=== PATIENT | female | born 1955 | race Caucasian/White ===

== ENCOUNTER → 2016-10-06 | Outpatient (CLI) | payer OTHER ==
[~2016-10-06] MED LIST: CODCAP4 PO; EFFSR75 PO; HYDR200T5 PO; HYT/2 PO; IBUP-103 PO; IBUP-1050 PO; IBUP200C9 PO; OMEP40CA41 PO; PLQ200 PO; SPIR1TAB72 PO; TRAZ50TA35 PO
[2016-10-06 11:20] LABS: BASO % 1.5 %; BASO ABS # 0.06 K/uL (0-0.2); COMPLETE YES; EOS % 8.4 %; HEMATOCRIT 35.5 % (37-47); LYMPH % 20.1 %; LYMPH ABS # 0.79 K/uL (1.2-3.4); MEAN CELL VOLUME 83.7 fL (80-100); MEAN CORPUSCULAR HEMOGLOBIN 27.8 pg (25-34); MEAN CORPUSCULAR HGB CONC 33.2 g/dl (32-36); MEAN PLATELET VOLUME 11.4 fL (7.4-10.4); MONO % 13.2 %; NEUT % 56.8 %; PLATELET COUNT 228 K/uL (130-400); RED BLOOD COUNT 4.24 M/uL (4.2-5.4); WHITE BLOOD COUNT 3.93 K/uL (4.8-10.8)
[2016-10-06 11:31] LABS: BLOOD UREA NITROGEN 23 mg/dl (7-18); BUN/CREATININE RATIO 17.5 (10-20); CARBON DIOXIDE 30 mmol/L (21-32); CHLORIDE 100 mmol/L (98-107); CHOLESTEROL 227 mg/dl (0-200); GLUCOSE 91 mg/dl (70-99); POTASSIUM 3.9 mmol/L (3.5-5.1); SODIUM 135 mmol/L (136-145); TRIGLYCERIDES 80 mg/dl (0-150); VERY LOW DENSITY LIPOPROT CALC 16 mg/dl
[2016-10-06 11:36] LABS: ESTIMATED AVERAGE GLUCOSE 114 mg/dl; HA1C FLAG Normal (Normal)
[2016-10-06 11:40] LABS: CALCIUM 9.3 mg/dl (8.5-10.1)
[2016-10-06 11:50] LABS: CHOLESTEROL/HDL RATIO 3.4; HDL CHOLESTEROL 66 mg/dl; LDL CHOLESTEROL CALCULATED 145 mg/dl; RHEUMATOID FACTOR 46.3 U/mL (0-15)
[2016-10-06 13:13] LABS: URINE APPEARANCE CLEAR (CLEAR); URINE BILIRUBIN NEG (NEG); URINE COLOR YELLOW; URINE NITRITE NEG (NEG); URINE PH 5.5 (4.5-7.5); URINE SPECIFIC GRAVITY 1.008 (1.000-1.030); UROBILINOGEN NEG (NEG)
[2016-10-06 13:14] LABS: MANUAL MICROSCOPIC REQUIRED? NO; REVIEW REQ? NO
== END | disposition home or self-care (01) ==
LOC: C.LABPBG 08:23
PROVIDERS: ATTEND Internal Medicine
DX: I10 Essential (primary) hypertension (principal)

== ENCOUNTER → 2016-10-11 | Outpatient (CLI) | payer OTHER ==
[2016-10-11 17:46] LABS: HEMATOCRIT 35.9 % (37-47)
[2016-10-11 18:12] LABS: BLOOD UREA NITROGEN 24 mg/dl (7-18)
[2016-10-11 18:17] LABS: FERRITIN 18.9 ng/ml (8.0-388.0); TOTAL IRON BINDING CAPACITY 349 mcg/dl (250-450)
== END | disposition home or self-care (01) ==
LOC: C.LAB1850 17:01
PROVIDERS: ATTEND Internal Medicine
DX: D64.9 Anemia, unspecified (principal)

== ENCOUNTER → 2016-10-17 | Outpatient (CLI) | payer OTHER | END | disposition home or self-care (01) | LOC: C.LABSPEC 10-12 15:31 | PROVIDERS: ATTEND Internal Medicine | DX: D64.9 Anemia, unspecified (principal) ==

== ENCOUNTER → 2016-10-18 | Outpatient (CLI) | payer OTHER ==
--- NOTE | 2016-10-18 08:49 | DIAGNOSTIC IMAGING REPORT ---
DOPPLER ULTRASOUND OF THE RENAL ARTERIES CLINICAL HISTORY: Renal insufficiency. COMPARISON STUDY: CT of the abdomen January 28, 2009. TECHNIQUE: Grayscale and color and duplex Doppler sonography of the abdominal aorta and renal arteries was performed. FINDINGS: The peak systolic velocity within the abdominal aorta was 107 cm/s. The peak systolic velocity within the right renal artery was 108 cm/s and the peak systolic velocity within the left renal artery was 88 cm/s. Both renal veins were patent. Segmental waveforms within each kidney were within normal limits. IMPRESSION: No sonographic evidence of renal artery stenosis. Electronically signed by: Douglas Guaman M.D. 10/18/2016 8:48 AM Dictated Date/Time: 10/18/2016 8:46 AM
--- NOTE | 2016-10-18 08:50 | DIAGNOSTIC IMAGING REPORT ---
RENAL ULTRASOUND CLINICAL HISTORY: Renal insufficiency. COMPARISON STUDY: CT of the abdomen January 28, 2009. TECHNIQUE: Sonography of the kidneys and the urinary bladder was performed. FINDINGS: The right kidney measures 9.2 x 4.6 x 4.7 cm and the left measures 9.3 x 4.9 x 4 cm. There is no hydronephrosis. Renal echogenicity, size and cortical thickness are normal. The bladder is unremarkable by sonography. No renal masses or calculi are identified by sonography. IMPRESSION: Normal renal ultrasound. Electronically signed by: Douglas Guaman M.D. 10/18/2016 8:49 AM Dictated Date/Time: 10/18/2016 8:48 AM
== END | disposition home or self-care (01) ==
LOC: C.ULTR 07:30
PROVIDERS: ATTEND Internal Medicine
DX: N28.9 Disorder of kidney and ureter, unspecified (principal)

== ENCOUNTER → 2017-03-09 | Outpatient (CLI) | payer OTHER ==
[~2017-03-09] MED LIST changes: +CODCAP PO; -CODCAP4 PO; -HYDR200T5 PO; -IBUP-1050 PO; -IBUP200C9 PO; -SPIR1TAB72 PO
[2017-03-09 17:19] LABS: URINE APPEARANCE CLEAR (CLEAR); URINE BILIRUBIN NEG (NEG); URINE COLOR YELLOW; URINE NITRITE NEG (NEG); URINE PH 5.5 (4.5-7.5); URINE SPECIFIC GRAVITY 1.014 (1.000-1.030); UROBILINOGEN NEG (NEG)
[2017-03-09 17:21] LABS: MANUAL MICROSCOPIC REQUIRED? NO; REVIEW REQ? NO
[2017-03-09 17:22] LABS: BASO % 1.5 %; BASO ABS # 0.06 K/uL (0-0.2); COMPLETE YES; EOS % 6.7 %; HEMATOCRIT 35.1 % (37-47); IG% 0.3 %; LYMPH % 24.7 %; LYMPH ABS # 0.96 K/uL (1.2-3.4); MEAN CELL VOLUME 83.4 fL (80-100); MEAN CORPUSCULAR HEMOGLOBIN 27.8 pg (25-34); MEAN CORPUSCULAR HGB CONC 33.3 g/dl (32-36); MEAN PLATELET VOLUME 10.9 fL (7.4-10.4); MONO % 12.3 %; NEUT % 54.5 %; PLATELET COUNT 230 K/uL (130-400); RED BLOOD COUNT 4.21 M/uL (4.2-5.4); WHITE BLOOD COUNT 3.89 K/uL (4.8-10.8)
[2017-03-09 18:07] LABS: ALT/SGPT 24 U/L (12-78); AST/SGOT 26 U/L (15-37); BLOOD UREA NITROGEN 20 mg/dl (7-18); BUN/CREATININE RATIO 15.6 (10-20); CALCIUM 8.7 mg/dl (8.5-10.1); CARBON DIOXIDE 25 mmol/L (21-32); CHLORIDE 102 mmol/L (98-107); GLUCOSE 83 mg/dl (70-99); POTASSIUM 3.8 mmol/L (3.5-5.1); SODIUM 136 mmol/L (136-145)
[2017-03-09 18:13] LABS: ALB/GLOB RATIO 1.1 (0.9-2); ALKALINE PHOSPHATASE 84 U/L (45-117); CHOLESTEROL 225 mg/dl (0-200); CHOLESTEROL/HDL RATIO 3.8; FERRITIN 28.3 ng/ml (8.0-388.0); HDL CHOLESTEROL 59 mg/dl; LDL CHOLESTEROL CALCULATED 141 mg/dl; TRIGLYCERIDES 124 mg/dl (0-150); VERY LOW DENSITY LIPOPROT CALC 25 mg/dl
== END | disposition home or self-care (01) ==
LOC: C.LABPBG 11:40
PROVIDERS: ATTEND Internal Medicine
DX: I10 Essential (primary) hypertension (principal); D64.9 Anemia, unspecified

== ENCOUNTER → 2017-05-16 | Day surgery (SDC) | payer OTHER ==
[2017-05-09 10:00] VITALS: Ht 152.4 cm; Wt 90.9 kg
[~2017-05-16] VITALS: Ht 152.4 cm; Wt 90.9 kg
[~2017-05-16] MED LIST changes: -CODCAP PO; +FENTANYL CITRATE INJ 50 MCG/1 ML 2 ML VIAL ONE; +HYDR200T5 PO; -IBUP-103 PO; +IBUP-1050 PO; +IBUP200C9 PO; +LIDOCAINE HCL 2% 2 ML VIAL (20MG/ML) ONE; -PLQ200 PO; +PROPOFOL IV EMULSION 10 MG/ML 20 ML VIAL IV ONE; +SODIUM CHLORIDE 0.9% 500ML 500 ML IV ONE; +SPIR1TAB72 PO
--- NOTE | 2017-05-16 12:12 | Endo History and Physical ---
History & Physical Date of Service: May 16, 2017. Chief Complaint: ANEMIA Referring Physician: DR. EVANS History of Present Illness 61 yo CF who presents for EGD and colonoscopy secondary to anemia. Past Medical History Arthritis, Gastrointestinal Disorder, Sleep Apnea, Depression Past Surgical History Hx Cardiac Surgery: No Hx Internal Defibrillator: No Hx Pacemaker: No Hx Abdominal Surgery: Yes (TUBAL LIGATION, ABDOMINAL HERNIA X 2, HYSTERECTOMY) Hx of Implantable Prosthesis: No Hx Post-Op Nausea and Vomiting: No Hx Cancer Surgery: No Hx Thoracic Surgery: No Hx Orthopedic: Yes (RT KNEE ARTHROSCOPY) Hx Urinary Tract Surgery: No Family History None Social History Smoking Status: Never Smoker Hx Substance Use: No Hx Alcohol Use: Yes (RARELY) Allergies Coded Allergies: Sulfa Antibiotics (Verified Allergy, Severe, RASH, 05/09/17) JESSE JOHNSONS SYNDROME Current Medications Reported Home Medications Medications Dose Route/Sig Max Daily Dose Days Date Category Trazodone (Trazodone HCl) 50 Mg Tab 50 Mg PO HS 05/16/17 Reported Hytrin (Terazosin HCl) 2 Mg Cap 2 Mg PO DAILY PRN 05/16/17 Reported Advil Pm (Ibuprofen-Diphenhydramine Hcl) 1 Cap Cap 2 Cap PO HS PRN 05/09/17 Reported Advil (Ibuprofen) 200 Mg Tab 2 Tab PO QAM 05/09/17 Reported Spironolactone/Hydrochlor 25-25 mg (HCTZ/Spironolactone) 1 Ea Tab 1 Tab PO BID 05/09/17 Reported Plaquenil (Hydroxychloroquine Sulfate) 200 Mg Tab 200 Mg PO BID 05/09/17 Reported Effexor Extended Rel (Venlafaxine Hcl) 75 Mg Capcr 75 Mg PO QAM 10/26/13 Reported Prilosec (Omeprazole) 40 Mg Cap 40 Mg PO QAM 10/26/13 Reported Vital Signs Weight (Kilograms): 90.91 Height (Feet): 5 Height (Inches): 0 Date Time Temp Pulse Resp B/P (MAP) Pulse Ox O2 Delivery O2 Flow Rate FiO2 05/16/17 11:25 37.4 73 16 138/71 (93) 98 Room Air Physical Exam General Appearance: WD/WN, no apparent distress Respiratory/Chest: Auscultation: breath sounds normal Cardiovascular: Heart Auscultation: RRR Abdomen: Bowel Sounds: normal Inspection & Palpation: soft, non-distended, no tenderness, guarding & rebound Assessment and Plan Assessment: 61 yo CF who presents for EGD and colonoscopy secondary to anemia. Plan: Proceed with EGD and colonoscopy.
--- NOTE | 2017-05-16 12:53 | GI REPORT ---
Procedure Date: 05/16/2017 11:56 AM Procedure: Upper GI endoscopy Indications: Iron deficiency anemia Medicines: Monitored Anesthesia Care Complications: No immediate complications. Estimated Blood Loss: Estimated blood loss: none. Procedure: Pre-Anesthesia Assessment: - Prior to the procedure, a History and Physical was performed, and patient medications and allergies were reviewed. The patient's tolerance of previous anesthesia was also reviewed. The risks and benefits of the procedure and the sedation options and risks were discussed with the patient. All questions were answered, and informed consent was obtained. Prior Anticoagulants: The patient has taken no previous anticoagulant or antiplatelet agents. ASA Grade Assessment: III - A patient with severe systemic disease. After reviewing the risks and benefits, the patient was deemed in satisfactory condition to undergo the procedure. After obtaining informed consent, the endoscope was passed under direct vision. Throughout the procedure, the patient's blood pressure, pulse, and oxygen saturations were monitored continuously. The Scope was introduced through the mouth, and advanced to the second part of duodenum. The upper GI endoscopy was accomplished without difficulty. The patient tolerated the procedure well. Findings: The esophagus was normal. A small hiatus hernia was present. The examined duodenum was normal. Impression: - Normal esophagus. - Small hiatus hernia. - Normal examined duodenum. - No specimens collected. Recommendation: - Resume previous diet. - Continue present medications. - Return to primary care physician as previously scheduled. - Perform a colonoscopy today. Casa Vaughn DO 05/16/2017 12:52:48 PM This report has been signed electronically. Note Initiated On: 05/16/2017 11:56 AM I attest to the content of the Intraoperative Record and orders documented therein, exceptions below
--- NOTE | 2017-05-16 12:55 | GI REPORT ---
Procedure Date: 05/16/2017 12:23 PM Procedure: Colonoscopy Indications: Iron deficiency anemia Medicines: Monitored Anesthesia Care Complications: No immediate complications. Estimated Blood Loss: Estimated blood loss: none. Procedure: Pre-Anesthesia Assessment: - Prior to the procedure, a History and Physical was performed, and patient medications and allergies were reviewed. The patient's tolerance of previous anesthesia was also reviewed. The risks and benefits of the procedure and the sedation options and risks were discussed with the patient. All questions were answered, and informed consent was obtained. Prior Anticoagulants: The patient has taken no previous anticoagulant or antiplatelet agents. ASA Grade Assessment: III - A patient with severe systemic disease. After reviewing the risks and benefits, the patient was deemed in satisfactory condition to undergo the procedure. After I obtained informed consent, the scope was passed under direct vision. Throughout the procedure, the patient's blood pressure, pulse, and oxygen saturations were monitored continuously. The scope was introduced through the anus and advanced to the terminal ileum. The colonoscopy was performed without difficulty. The patient tolerated the procedure well. The quality of the bowel preparation was good. The terminal ileum, ileocecal valve, appendiceal orifice, and rectum were photographed. Findings: A 7 mm polyp was found in the transverse colon. The polyp was flat. The polyp was removed with a saline injection-lift technique using a hot snare. Resection and retrieval were complete. Non-bleeding internal hemorrhoids were found during retroflexion. The hemorrhoids were small. Impression: - One 7 mm polyp in the transverse colon, removed using injection-lift and a hot snare. Resected and retrieved. - Non-bleeding internal hemorrhoids. Recommendation: - Resume previous diet. - Continue present medications. - Repeat colonoscopy in 10 years for surveillance. - Return to primary care physician as previously scheduled. aCsa Vaughn DO 05/16/2017 12:55:33 PM This report has been signed electronically. Note Initiated On: 05/16/2017 12:23 PM I attest to the content of the Intraoperative Record and orders documented therein, exceptions below
--- NOTE | 2017-05-16 13:20 | Discharge Instructions ---
Endoscopy Patient Instructions Date / Procedure(s) Performed May 16, 2017. Colonoscopy, EGD Allergy Information Coded Allergies: Sulfa Antibiotics (Verified Allergy, Severe, RASH, 05/09/17) JESSE JOHNSONS SYNDROME Discharge Date / Findings May 16, 2017. EGD: Hiatal hernia Colonoscopy: Colon polyp, Internal hemorrhoids Medication Instructions OK to resume all medications today as prescribed Reported Home Medications Medications Dose Route/Sig Max Daily Dose Days Date Category Trazodone (Trazodone HCl) 50 Mg Tab 50 Mg PO HS 05/16/17 Reported Hytrin (Terazosin HCl) 2 Mg Cap 2 Mg PO DAILY PRN 05/16/17 Reported Advil Pm (Ibuprofen-Diphenhydramine Hcl) 1 Cap Cap 2 Cap PO HS PRN 05/09/17 Reported Advil (Ibuprofen) 200 Mg Tab 2 Tab PO QAM 05/09/17 Reported Spironolactone/Hydrochlor 25-25 mg (HCTZ/Spironolactone) 1 Ea Tab 1 Tab PO BID 05/09/17 Reported Plaquenil (Hydroxychloroquine Sulfate) 200 Mg Tab 200 Mg PO BID 05/09/17 Reported Effexor Extended Rel (Venlafaxine Hcl) 75 Mg Capcr 75 Mg PO QAM 10/26/13 Reported Prilosec (Omeprazole) 40 Mg Cap 40 Mg PO QAM 10/26/13 Reported Provider Instructions Activity Restrictions - No exercising or heavy lifting for 24 hours. - Do not drink alcohol the day of the procedure. - Do not drive a car or operate machinery until the day after the procedure. - Do not make any important decisions or sign important papers in 24 hours after the procedure. Following Day: - Return to full activity which may include returning to work/school. Diet Start your diet with liquids and light foods (jello, soup, juice, toast). Then eat your usual diet if not nauseated. Treatment For Common After Affects For mild abdominal pain, bloating, or excessive gas: - Rest - Eat lightly - Lie on right side Follow-Up Information Follow-up with DR. EVANS as scheduled Anesthesia Information What You Should Know You have had a procedure that required some medicine to reduce anxiety and discomfort. This treatment is called moderate sedation. After receiving the treatment, you may be sleepy, but you will be able to breathe on your own. The effects of the treatment may last for several hours. Follow these instructions along with Activity/Diet recommendations noted above: * Do NOT do anything where dizziness or clumsiness would be dangerous. * Rest quietly at home today, then you can be up and about tomorrow. * Have a responsible person stay with you the rest of today. * You may have had an I.V. today. If so, you may take the dressing off later today. Recommendations Call your doctor if: * Trouble breathing * Continuous vomiting for more than 24 hours * Temperature above 101 degrees * Severe abdominal pain or bloating * Pain not relieved by pain medicine ordered * There is increased drainage or redness from any incision * A large amount of rectal bleeding greater than 2-3 tablespoons. (If you had a polyp/s removed or have hemorrhoids, a small amount of blood - from the rectum is to be expected.) * You have any unanswered questions or concerns. IN THE EVENT OF A SERIOUS EMERGENCY, GO TO THE NEAREST EMERGENCY ROOM Your discharge instructions were prepared by provider Casa Vaughn. Patient Instructions Signature Page Manju Murphy Patient (or Guardian) Signature/Date: I have read and understand the instructions given to me by my caregivers. Caregiver/RN/Doctor Signature/Date: The above-named patient and/or guardian has received patient instructions on this date. + Original Patient Signature Page (only) stays with chart. Please make copy for patient.
[2017-05-16 13:24] VITALS: BP 145/84; PULSE 66; O2SAT 100
--- NOTE | 2017-05-16 13:26 | Anesthesiology Progress Note ---
Anesthesia Post Op Note Date & Time May 16, 2017 at 13:26 Vital Signs Pain Intensity: 0 Vital Signs Past 12 Hours Date Time Temp Pulse Resp B/P (MAP) Pulse Ox O2 Delivery O2 Flow Rate FiO2 05/16/17 13:24 66 12 145/84 (104) 100 Room Air 05/16/17 13:06 66 12 137/98 (111) 99 Room Air 05/16/17 12:51 70 12 125/78 (94) 99 Room Air 05/16/17 11:25 37.4 73 16 138/71 (93) 98 Room Air Notes Mental Status: alert / awake / arousable, participated in evaluation Pt Amnestic to Procedure: Yes Nausea / Vomiting: adequately controlled Pain: adequately controlled Airway Patency, RR, SpO2: stable & adequate BP & HR: stable & adequate Hydration State: stable & adequate Anesthetic Complications: no major complications apparent
== END | disposition home or self-care (01) ==
LOC: C.GI 10:49
PROVIDERS: ATTEND Internal Medicine
DX: D50.9 Iron deficiency anemia, unspecified (principal); D12.3 Benign neoplasm of transverse colon; K64.8 Other hemorrhoids; F32.9 Major depressive disorder, single episode, unspecified; Z98.51 Tubal ligation status; Z90.710 Acquired absence of both cervix and uterus; Z88.2 Allergy status to sulfonamides; G47.33 Obstructive sleep apnea (adult) (pediatric); I10 Essential (primary) hypertension; K21.9 Gastro-esophageal reflux disease without esophagitis; M19.90 Unspecified osteoarthritis, unspecified site; M06.9 Rheumatoid arthritis, unspecified

== ENCOUNTER → 2017-08-14 | Outpatient (CLI) | payer OTHER ==
[~2017-08-14] MED LIST changes: -FENTANYL CITRATE INJ 50 MCG/1 ML 2 ML VIAL ONE; +IBUP1CAP30 PO; -IBUP200C9 PO; -LIDOCAINE HCL 2% 2 ML VIAL (20MG/ML) ONE; -PROPOFOL IV EMULSION 10 MG/ML 20 ML VIAL IV ONE; -SODIUM CHLORIDE 0.9% 500ML 500 ML IV ONE
[2017-08-14 17:50] LABS: BASO % 0.7 %; BASO ABS # 0.03 K/uL (0-0.2); EOS % 2.6 %; EOS ABS # 0.11 K/uL (0-0.5); HEMATOCRIT 36.1 % (37-47); HEMOGLOBIN 12.1 g/dL (12.0-16.0); IG# 0.01 K/uL (0.00-0.02); LYMPH % 26.3 %; LYMPH ABS # 1.13 K/uL (1.2-3.4); MEAN CELL VOLUME 81.3 fL (80-100); MEAN CORPUSCULAR HEMOGLOBIN 27.3 pg (25-34); MEAN CORPUSCULAR HGB CONC 33.5 g/dl (32-36); MEAN PLATELET VOLUME 10.1 fL (7.4-10.4); MONO % 14.2 %; MONO ABS # 0.61 K/uL (0.11-0.59); PLATELET COUNT 238 K/uL (130-400); WHITE BLOOD COUNT 4.29 K/uL (4.8-10.8)
== END | disposition home or self-care (01) ==
LOC: C.LAB1850 17:07
PROVIDERS: ATTEND Internal Medicine
DX: D64.9 Anemia, unspecified (principal)

== ENCOUNTER 2019-07-13 19:57 | Inpatient (IN) ==
[2019-07-13] MEDS ORDERED: SODIUM CHLORIDE 0.9% 1000ML 1,000 ML IV ONE ×2 (20:47→21:35)
[2019-07-13 21:02] LABS: Basophils # (auto) 0.01 K/uL (0-0.2); Basophils % (auto) 0.1 %; Hematocrit (blood only) 36.5 % (37-47); Hemoglobin 12.7 g/dL (12.0-16.0); Immature Granulocytes # (auto) 0.09 K/uL (0.00-0.02); Immature Granulocytes % (auto) 0.8 %; Lymphocytes # (auto) 0.49 K/uL (1.2-3.4); Lymphocytes % (auto) 4.1 %; Mean Corpuscular Hemoglobin 28.5 pg (25-34); Mean Corpuscular Hgb Conc 34.8 g/dL (32-36); Mean Platelet Volume 11.2 fL (7.4-10.4); Monocytes # (auto) 0.68 K/uL (0.11-0.59); Monocytes % (auto) 5.7 %; Neutrophils # (auto) 10.68 K/uL (1.4-6.5); Neutrophils % (auto) 89.3 %; Platelet Count 216 K/uL (130-400); RDW Coefficient of Variation 13.2 % (11.5-14.5); RDW Standard Deviation 40.2 fL (36.4-46.3); Red Blood Count 4.45 M/uL (4.2-5.4); White Blood Count 11.95 K/uL (4.8-10.8)
[2019-07-13 21:14] LABS: Alanine Aminotransferase 20 U/L (12-78); Aspartate Aminotransferase 17 U/L (15-37); BUN Creatinine Ratio 12.6 (10-20); Blood Urea Nitrogen 21 mg/dl (7-18); Calcium 8.5 mg/dl (8.5-10.1); Carbon Dioxide 25 mmol/L (21-32); Chloride 94 mmol/L (98-107); Creatinine Clr Calc Pharmacy 33.6 ml/min; Est GFR (African American) 36.6; Est GFR (Non-African American) 31.5; Glucose 145 mg/dl (70-99); Magnesium 1.7 mg/dl (1.8-2.4); Sodium 129 mmol/L (136-145)
[2019-07-13 21:16] LABS: INR 1.2 (0.9-1.1); Partial Thromboplastin Ratio 1.1; Partial Thromboplastin Time 29.2 Seconds (21.0-31.0); Prothrombin Time 12.1 Seconds (9.0-12.0)
--- NOTE | 2019-07-13 21:16 | XRay Report ---
SINGLE VIEW CHEST CLINICAL HISTORY: Sepsis. FINDINGS: An AP, portable, upright chest radiograph is compared to study dated 02/26/2009. The cardiom ediastinal silhouette is unremarkable. There is airspace consolidation at the right lung base. No lar ge pleural effusion or pneumothorax is seen. The skeletal structures are osteopenic. The bony thorax is grossly intact. IMPRESSION: Right basilar consolidation is typical in appearance for pneumonia. Clinical correlation will be required and radiographic follow-up to resolution is recommended. ACT 112: Negative or not required by law. Electronically signed by: Stan Cunningham M.D. 07/13/2019 9:15 PM
[2019-07-13 21:18] LABS: Albumin Globulin Ratio 0.6 (0.9-2); Alkaline Phosphatase 125 U/L (45-117); Bilirubin,Total 0.7 mg/dl (0.2-1); Globulin 4.8 gm/dl (2.5-4.0); Total Protein 7.8 gm/dl (6.4-8.2); Troponin I < 0.015 ng/ml (0-0.045)
[2019-07-13 21:27] LABS: Influenza A virus by PCR Neg for Influ A (Neg); Influenza B virus by PCR Neg for Influ B (Neg)
[2019-07-13] MEDS ORDERED: PIPERACILL/TAZOBAC CONSULT ACTIVE PRN (21:34)
[2019-07-13] MEDS ORDERED: PIPERACILLIN/TAZOBACTAM 4.5 GM/120 ML BAG IV ONE (21:34)
[2019-07-13] MEDS ORDERED: MAGNESIUM SULFATE / D5W 1 GM/100 ML BAG IV ONE ×2 (22:16→23:08)
[2019-07-13] MEDS ORDERED: MAGNESIUM OXIDE 400 MG TAB PO ONE (23:08)
[2019-07-13] MEDS ORDERED: POTASSIUM CHLORIDE 20 MEQ/15 ML UDC PO STA (23:08)
[2019-07-13] MEDS ORDERED: SODIUM CHLORIDE 0.9% 1000ML 1,000 ML IV SCH (23:08)
[2019-07-13] MEDS ORDERED: INFLUENZA VACCINE HIGH DOSE 65+ 0.5 ML SYR IM ONE (23:09)
[2019-07-13] MEDS ORDERED: INFLUENZA ADMINISTRATION CHARGE ONE (23:09)
--- NOTE | 2019-07-13 23:20 | History & Physical Report ---
Date of Service July 13, 2019 Assessment & Plan (1) Pneumonia: Manju Murphy is a 63 y/o y/o female with past medical hx of RA, Raynaud's, HTN, anxiety, GERD, CARLOS who presents for CC Fever and Shortness of breath. Admitted for CAP with LIBRADO. Admitted for CAP with CXR showed right basilar consolidation with clinical correlation consistent with pneumonia. She received Zosyn and 1L of NSS in ED. - Will switch to CAP treatment of Zithromax 500mg PO and Rocephin 1gm IV. - Currently not requiring supplemental O2, ordered as needed - Mild Leukocytosis of 11.95, trend - Influenza high dose vaccination ordered - Monitor hemodynamics and cardiac monitoring, currently stable - Replace electrolytes as below - Duonebs PRN - MRSA swab ordered - Negative for influenza in ED Code: Full Code DVT ppx: Lovenox 30mg SQ q24, renally dosed in setting of elevated creatinine and LIBRADO FENGI: Diet regular Dispo: full admit, med surg tele (2) Hypokalemia: 3.0 in ED in setting of hypomag Replenish mag as noted w/KCL 40meq PO and KCL 20meq IV trend value Most likely from poor PO intake (3) LIBRADO (acute kidney injury): Possible LIBRADO Creatinine 1.68 with possible baseline 1.30 from review of old records - received 1L NSS bolus in ED - Will give another bag overnight of NSS @ 125mL/hr and defer to day team for further IV fluids after review of AM labs - Most likely from poor PO hydration - Hold home HTN meds HCTZ-Spironolactone - Encourage PO intake (4) Dehydration: Appears dry on labs with elevated Creatinine - received 1L NSS bolus in ED - Will give another bag overnight and defer to day team after review of AM labs (5) Hypomagnesemia: 1.7 in ED Will replace with Mag 1gm IV and Mag 400mg PO x 1 Trend in AM (6) Hypertension: Hold home diuretics in setting of LIBRADO/elevated Creatinine (7) Rheumatoid arthritis: continue with home Plaquenil 200mg PO BID (8) Anxiety: continue with home Effexor XR 75mg daily (9) Abnormal INR: No clear etiology, suspect fatty liver based on BMI Trend (10) Sleep apnea: CPAP ordered, CARLOS, did not bring hers, she is unsure of settings. (11) Insomnia: continue with home Trazodone 50mg PO qHS (12) Gastroesophageal reflux disease: continue with home PPI (13) Raynauds phenomenon: she is on Terazosin 2mg PRN, but hasn't needed it recently, only takes in cold weather and hasn't been outside much, so will hold medication. History of Present Illness Chief Complaint: Shortness of breath/Fever Primary Care Provider: Aman Street MD Manju Murphy is a 63 y/o y/o female with past medical hx of RA, Raynaud's, HTN, anxiety, GERD, CARLOS who presents for CC Fever and Shortness of breath. She notes onset of fevers about 3 days ago with Tmax 101 F treated with Ibuprofen which did not relieve fevers. She started to have onset of shortness of breath about 2 days ago at rest and with exertion. She denied any cough. She has had chills, night sweats. No abdominal pain, chest pain, nausea, vomiting, diarrhea, travel out of [facility], long car trips/air travel/travel to [place]. She did not get the influenza vaccine and has not received any Pneumonia vaccinations since turning 63. She has no prior history of Pneumonia. She does wear a CPAP at night but did not bring machine. No lower extremity swelling or calf pain. She notes poor PO intake with poor hydration and decreased appetite. In the ED, she was found to have a mild leukocytosis, hyponatremia 129, hypokalemia 3.0, Possible LIBRADO Creatinine 1.68 with possible baseline 1.30 from review of old records, hypomag of 1.7, INR of 1.2 not on anti-coagluation, negative for influenza. CXR showed right basilar consolidation with clinical correlation consistent with pneumonia. She received Zosyn and 1L of NSS in ED. Allergies Allergy/AdvReac Type Severity Reaction Status Date / Time Sulfa (Sulfonamide Allergy Severe RASH Verified 07/13/19 21:48 Antibiotics) sulfamethoxazole Allergy Unknown Anaphylaxis Verified 07/13/19 21:48 [From Bactrim] tramadol Allergy Unknown Hypotension Verified 07/13/19 21:48 trimethoprim [From Bactrim] Allergy Unknown Anaphylaxis Verified 07/13/19 21:48 Home Medications Home Medications Medication Instructions Recorded Confirmed Type terazosin 2 mg capsule 2 mg PO DAILY #30 cap 01/31/19 07/13/19 Rx omeprazole 40 mg capsule,delayed 40 mg PO DAILY #30 cap 04/15/19 07/13/19 Rx release spironolactone 25 1 tab PO BID #30 tab 04/15/19 07/13/19 Rx mg-hydrochlorothiazide 25 mg tablet hydroxychloroquine [Plaquenil] 200 mg PO BID 07/13/19 07/13/19 History ibuprofen [Advil] 400 mg PO Q6H PRN 07/13/19 07/13/19 History trazodone 50 mg PO HS 07/13/19 07/13/19 History venlafaxine [Effexor XR] 75 mg PO DAILY 07/13/19 07/13/19 History Past Med/Surg History Medical History (Updated 07/13/19 @ 23:24 by Steven Gray DO) Anemia (Chronic) Chronic renal insufficiency (Chronic) Gastroesophageal reflux disease (Chronic) Hypertension (Chronic) Insomnia (Chronic) Mammogram abnormal (Chronic) Overweight (Chronic) Raynauds phenomenon (Chronic) Rheumatoid arthritis (Chronic) Sciatica (Chronic) Sleep apnea (Chronic) Russell-Jose Roberto syndrome (Acute) Social History Preferred Language: Grenadian Communication Ability: Effective Beliefs That Will Affect Care: None Current Living Situation: Alone Feels Safe at Home: Yes Safety Concerns: Feels Safe At This Time Smoking Status: Never smoker Hx Alcohol Use: No Hx Substance Use: No Review of Systems Review of Systems: All systems reviewed & are unremarkable except as noted in HPI & below Constitutional: as per Subjective / HPI Eyes: no diplopia and no worsening vision Ear, Nose, Mouth, Throat: no nasal congestion and no sore throat Respiratory: + dyspnea; no cough Cardiovascular: no chest pain and no edema Gastrointestinal: no abdominal pain, no nausea, no vomiting and no diarrhea/loose stools Genitourinary: no dysuria and no difficulty urinating Musculoskeletal: no back pain and no swelling Integumentary: no rash Neurologic: no numbness and no confusion Physical Exam Constitutional: WD/WN, vitals as above cooperative and comfortable Eyes: PERRL, conjunctivae normal, anicteric sclerae ENMT: external ear and nose normal, oropharynx normal Neck: normal visual inspection and trachea midline Respiratory: normal respiratory effort; no respiratory distress Auscultation: + crackles (right lung base) Cardiovascular: RRR, no murmur, no edema Gastrointestinal (Abdomen): Inspection/Auscultation: normal bowel sounds Percussion/Palpation: abdomen soft; abdomen nontender, no guarding and abdomen not rigid Musculoskeletal: Head/Neck/Chest: normocephalic and head atraumatic Skin: no rashes, warm and dry Neurologic: moves all extremities and awake Psychiatric: Orientation: alert and oriented x 3 Affect: + anxious affect Results & Data Vital Signs (Past 12 Hours) Vital Signs Temp Pulse Resp BP Pulse Ox 07/13/19 22:16 69 15 07/13/19 22:15 67 19 137/88 07/13/19 22:01 67 18 07/13/19 22:00 67 14 137/85 07/13/19 21:59 66 20 134/82 07/13/19 21:45 68 19 07/13/19 21:30 71 18 07/13/19 21:15 68 15 07/13/19 21:01 71 17 07/13/19 21:00 74 17 120/83 07/13/19 20:55 72 15 07/13/19 20:36 73 24 131/76 07/13/19 20:00 94 07/13/19 19:59 36.7 C 81 16 132/80 96 07/13/19 19:57 94 Code Status & VTE Plan Code Status Full Code VTE Prophylaxis Plan VTE Prophylaxis will be ordered: Yes Supervising Physician Co-Signing Physician Notes Patient was seen and examined by me personally. I reviewed the chart, the orders and discussed the case in detail with Dr. Steven Gray DO . I read this H&P and agree with its contents to entirety. Resident Activity Tracking Resident Involvement: Resident Care Provided Care Provided: Adult Hospital Medicine (1) Pneumonia Laterality: unspecified laterality Lung location: unspecified part of lung Pneumonia type: due to unspecified organism Qualified Code(s): J18.9 - Pneumonia, unspecified organism
--- NOTE | 2019-07-13 23:49 | Emergency Department Note ---
Entered by Mckenzie Vu acting as a scribe for Brennan Wyatt MD History of Present Illness General Chief complaint: Shortness of Breath/Dyspnea Stated complaint: SOB, WEAK, FEVER Time Seen by Provider: 07/13/19 20:40 History of Present Illness Provider complaint: illness Onset (ago): day(s) 3 Pain Consistency: + other (episode) Quality: + other (illness) Relieved By: + medication (Advil) Associated symptoms: + denies other symptoms (dysuria, diarrhea, sick contact), + chest pain (right upper), + diaphoresis, + fever/chills (now resolved), + headaches (now resolved), + weakness and + other (body aches); no nausea/vomiting and no rash Treatments prior to arrival: NSAID (Advil 6 hours ago) The patient is a 63 year old female who presents to the ED with complaints of an episode of an illness that started 3 days ago. The patient states that her symptoms started as a pain in her right upper chest, fever, diaphoresis and a headache. The patient states that her headache is now resolved but she still had a persistent fever. The patient states that her fever broke this afternoon after taking Advil. The patient states that her last dose of Advil was 6 hours ago. The patient states that she feels very weak and has body aches. The patient denies dysuria, vomiting, diarrhea, rash and sick contact. Home Medications Home Medications Medication Instructions Recorded Confirmed Type terazosin 2 mg capsule 2 mg PO DAILY #30 cap 01/31/19 07/13/19 Rx omeprazole 40 mg capsule,delayed 40 mg PO DAILY #30 cap 04/15/19 07/13/19 Rx release spironolactone 25 1 tab PO BID #30 tab 04/15/19 07/13/19 Rx mg-hydrochlorothiazide 25 mg tablet hydroxychloroquine [Plaquenil] 200 mg PO BID 07/13/19 07/13/19 History ibuprofen [Advil] 400 mg PO Q6H PRN 07/13/19 07/13/19 History trazodone 50 mg PO HS 07/13/19 07/13/19 History venlafaxine [Effexor XR] 75 mg PO DAILY 07/13/19 07/13/19 History Allergies Allergy/AdvReac Type Severity Reaction Status Date / Time Sulfa (Sulfonamide Allergy Severe RASH Verified 07/13/19 21:48 Antibiotics) sulfamethoxazole Allergy Unknown Anaphylaxis Verified 07/13/19 21:48 [From Bactrim] tramadol Allergy Unknown Hypotension Verified 07/13/19 21:48 trimethoprim [From Bactrim] Allergy Unknown Anaphylaxis Verified 07/13/19 21:48 Past Med/Surg History Medical History (Updated 07/13/19 @ 23:24 by Steven Gray DO) Anemia (Chronic) Chronic renal insufficiency (Chronic) Gastroesophageal reflux disease (Chronic) Hypertension (Chronic) Insomnia (Chronic) Mammogram abnormal (Chronic) Overweight (Chronic) Raynauds phenomenon (Chronic) Rheumatoid arthritis (Chronic) Sciatica (Chronic) Sleep apnea (Chronic) Russell-Jose Roberto syndrome (Acute) Social History Preferred Language: Stateless Feels Safe at Home: Yes Smoking Status: Never smoker Review of Systems See HPI for pertinent positives & negatives. and A total of 10 systems reviewed and were otherwise negative Physical Exam Vital Signs Vital Signs - 24 hr 07/13/19 19:57 07/13/19 19:59 07/13/19 20:00 Temperature 36.7 C Temperature Source Oral Pulse Rate 81 Pulse Rate from SpO2 Sensor Respiratory Rate 16 Respiratory Effort / Characteristics Non-Labored Spontaneous Respiratory Depth Normal Respiratory Pattern Regular Blood Pressure 132/80 Blood Pressure Mean 97 Blood Pressure Position Sitting Pulse Oximetry 94 96 94 Oxygen Delivery Method Room Air Room Air Room Air Sepsis Recent Fever Within 48 Hours No Sepsis Action Taken by Nursing No Action Required 07/13/19 20:36 07/13/19 20:44 07/13/19 20:55 Temperature Temperature Source Pulse Rate 73 72 Pulse Rate from SpO2 Sensor Respiratory Rate 24 15 Respiratory Effort / Characteristics Non-Labored Respiratory Depth Respiratory Pattern Regular Blood Pressure 131/76 Blood Pressure Mean 92 Blood Pressure Position Pulse Oximetry Oxygen Delivery Method Room Air Sepsis Recent Fever Within 48 Hours Sepsis Action Taken by Nursing 07/13/19 21:00 07/13/19 21:01 07/13/19 21:15 Temperature Temperature Source Pulse Rate 74 71 68 Pulse Rate from SpO2 Sensor Respiratory Rate 17 17 15 Respiratory Effort / Characteristics Respiratory Depth Respiratory Pattern Blood Pressure 120/83 Blood Pressure Mean 91 Blood Pressure Position Pulse Oximetry Oxygen Delivery Method Sepsis Recent Fever Within 48 Hours Sepsis Action Taken by Nursing 07/13/19 21:30 07/13/19 21:45 07/13/19 21:59 Temperature Temperature Source Pulse Rate 71 68 66 Pulse Rate from SpO2 Sensor Respiratory Rate 18 19 20 Respiratory Effort / Characteristics Respiratory Depth Respiratory Pattern Blood Pressure 134/82 Blood Pressure Mean 99 Blood Pressure Position Pulse Oximetry Oxygen Delivery Method Sepsis Recent Fever Within 48 Hours Sepsis Action Taken by Nursing 07/13/19 22:00 07/13/19 22:01 07/13/19 22:15 Temperature Temperature Source Pulse Rate 67 67 67 Pulse Rate from SpO2 Sensor Respiratory Rate 14 18 19 Respiratory Effort / Characteristics Respiratory Depth Respiratory Pattern Blood Pressure 137/85 137/88 Blood Pressure Mean 91 95 Blood Pressure Position Pulse Oximetry Oxygen Delivery Method Sepsis Recent Fever Within 48 Hours Sepsis Action Taken by Nursing 07/13/19 22:16 07/13/19 22:30 07/13/19 22:40 Temperature Temperature Source Pulse Rate 69 78 Pulse Rate from SpO2 Sensor 77 Respiratory Rate 15 24 Respiratory Effort / Characteristics Respiratory Depth Respiratory Pattern Blood Pressure 136/86 Blood Pressure Mean 104 Blood Pressure Position Pulse Oximetry 95 Oxygen Delivery Method Sepsis Recent Fever Within 48 Hours Sepsis Action Taken by Nursing 07/13/19 22:45 07/13/19 22:46 07/13/19 23:00 Temperature Temperature Source Pulse Rate 73 72 73 Pulse Rate from SpO2 Sensor 73 73 72 Respiratory Rate 24 21 17 Respiratory Effort / Characteristics Respiratory Depth Respiratory Pattern Blood Pressure 149/75 H 154/92 H Blood Pressure Mean 90 116 Blood Pressure Position Pulse Oximetry 99 97 96 Oxygen Delivery Method Sepsis Recent Fever Within 48 Hours Sepsis Action Taken by Nursing 07/13/19 23:01 07/13/19 23:15 07/13/19 23:30 Temperature Temperature Source Pulse Rate 70 70 70 Pulse Rate from SpO2 Sensor 70 71 70 Respiratory Rate 17 19 16 Respiratory Effort / Characteristics Respiratory Depth Respiratory Pattern Blood Pressure 145/94 H 142/87 H Blood Pressure Mean 102 94 Blood Pressure Position Pulse Oximetry 97 98 97 Oxygen Delivery Method Sepsis Recent Fever Within 48 Hours Sepsis Action Taken by Nursing 07/13/19 23:31 Temperature Temperature Source Pulse Rate 70 Pulse Rate from SpO2 Sensor 72 Respiratory Rate 19 Respiratory Effort / Characteristics Respiratory Depth Respiratory Pattern Blood Pressure Blood Pressure Mean Blood Pressure Position Pulse Oximetry 96 Oxygen Delivery Method Sepsis Recent Fever Within 48 Hours Sepsis Action Taken by Nursing General: Mildly-ill appearing but non-toxic middle aged female in no acute distress. HEENT: Normal cephalic atraumatic. Pupils are equal round and reactive to light. Extraocular movements are intact. Oropharynx is pink with moist mucous membranes. No swelling of the mouth lips or tongue. Neck: Supple with a midline trachea. No meningeal signs or stiffness, no JVD or bruits. No Stridor. Chest: Clear to auscultation bilaterally. No wheezes or rhonchi. No increased work of breathing. Heart: regular rate and rhythm. Abdomen: Soft nontender, nondistended without rebound guarding or rigidity. Extremities: No cyanosis clubbing or edema. No calf tenderness or asymmetry Spine/Back. Non tender to palpation. No CVA tenderness Skin: Good turgor without rashes. Neurologic exam: Cranial nerves two through 12 are intact. Motor and sensation are intact and symmetrical throughout. Course Course 2040: Past medical records reviewed. The patient was evaluated in room C07. A complete history and physical exam was performed. 2131: I updated the patient on the test results and plan for admission. She verbally agrees and understands. 2139: I discussed the patient's case with Dr. Veras [facility], Hospitalist. She will evaluate the patient for further management. Consultations Consultation #1: I discussed the patient's case with Dr. Veras [facility], Hospitalist. She will evaluate the patient for further management. Time: 21:40 Administered Medications Sodium Chloride (Nss 1000ml) 1,000 mls @ 125 mls/hr IV .Q8H MURALI Stop: 07/14/19 07:07 Last Admin: 07/13/19 23:39 Dose: 125 mls/hr Documented by: [id number] Magnesium Sulfate/Dextrose (Magnesium Sulfate / D5w) 1 gm in 100 mls @ 100 mls /hr IV ONE ONE Stop: 07/14/19 00:07 Last Admin: 07/13/19 23:40 Dose: 100 mls/hr Documented by: [id number] Discontinued Medications Sodium Chloride (Nss 1000ml) 1,000 mls @ 999 mls/hr IV .Q1H1M ONE Stop: 07/13/19 21:47 Last Infusion: 07/13/19 21:58 Dose: 0 mls/hr Documented by: [id number] Admin: 07/13/19 20:56 Dose: 999 mls/hr Documented by: [id number] Piperacillin Sod/Tazobactam Sod (Zosyn) 4.5 gm in 120 mls @ 240 mls/hr IV NOW ONE Stop: 07/13/19 22:03 Last Infusion: 07/13/19 22:27 Dose: 0 mls/hr Documented by: [id number] Admin: 07/13/19 21:57 Dose: 240 mls/hr Documented by: [id number] Sodium Chloride (Nss 1000ml) 1,000 mls @ 999 mls/hr IV .Q1H1M ONE Stop: 07/13/19 22:35 Last Infusion: 07/13/19 23:00 Dose: 0 mls/hr Documented by: [id number] Admin: 07/13/19 21:58 Dose: 999 mls/hr Documented by: [id number] Magnesium Sulfate/Dextrose (Magnesium Sulfate / D5w) 1 gm in 100 mls @ 100 mls/hr IV ONE ONE Stop: 07/13/19 23:15 Last Infusion: 07/13/19 23:30 Dose: 0 mls/hr Documented by: [id number] Admin: 07/13/19 22:27 Dose: 100 mls/hr Documented by: [id number] Magnesium Oxide (Mag-Ox) 400 mg PO ONE ONE Stop: 07/13/19 23:09 Last Admin: 07/13/19 23:39 Dose: 400 mg Documented by: [id number] Potassium Chloride (Traci Ciel Elix) 40 meq PO NOW STA Stop: 07/13/19 23:09 Last Admin: 07/13/19 23:39 Dose: 40 meq Documented by: [id number] Medical Decision Making Differential Diagnosis Differentials include influenza, pneumonia, sepsis, cardiac disease, pulmonary disease, metabolic and electrolyte abnormality. Medical Records Attestation: I reviewed the patient's medical records. Home Medications Current Medication List: was personally reviewed by me Laboratory Data Attestation: I reviewed the patient's lab results. Result diagrams: 07/13/19 20:20 07/13/19 20:20 Lab Results 07/13/19 07/13/19 07/13/19 Range/Units 20:15 20:20 20:20 WBC 11.95 H (4.8-10.8) K/uL RBC 4.45 (4.2-5.4) M/uL Hgb 12.7 (12.0-16.0) g/dL Hct 36.5 L (37-47) % MCV 82.0 (80-100) fL MCH 28.5 (25-34) pg MCHC 34.8 (32-36) g/dL RDW Std Deviation 40.2 (36.4-46.3) fL RDW Coeff of Jaylen 13.2 (11.5-14.5) % Plt Count 216 (130-400) K/uL MPV 11.2 H (7.4-10.4) fL Immature Gran % (Auto) 0.8 % Neut % (Auto) 89.3 % Lymph % (Auto) 4.1 % [place] % (Auto) 5.7 % Eos % (Auto) 0.0 % Baso % (Auto) 0.1 % Immature Gran # (Auto) 0.09 H (0.00-0.02) K/uL Neut # (Auto) 10.68 H (1.4-6.5) K/uL Lymph # (Auto) 0.49 L (1.2-3.4) K/uL [place] # (Auto) 0.68 H (0.11-0.59) K/uL Eos # (Auto) 0.00 (0-0.5) K/uL Baso # (Auto) 0.01 (0-0.2) K/uL PT 12.1 H (9.0-12.0) Seconds INR 1.2 H (0.9-1.1) APTT 29.2 (21.0-31.0) Seconds PTT Ratio 1.1 Sodium (136-145) mmol/L Potassium (3.5-5.1) mmol/L Chloride (98-107) mmol/L Carbon Dioxide (21-32) mmol/L Anion Gap (3-11) BUN (7-18) mg/dl Creatinine (0.6-1.2) mg/dl Est Cr Clr Drug Dosing ml/min Est GFR ( Amer) Est GFR (Non-Af Amer) BUN/Creatinine Ratio (10-20) Glucose (70-99) mg/dl Lactate (0.4-2.0) mmol/L Calcium (8.5-10.1) mg/dl Magnesium (1.8-2.4) mg/dl Total Bilirubin (0.2-1) mg/dl AST (15-37) U/L ALT (12-78) U/L Alkaline Phosphatase (45-117) U/L Troponin I (0-0.045) ng/ml Total Protein (6.4-8.2) gm/dl Albumin (3.4-5.0) gm/dl Globulin (2.5-4.0) gm/dl Albumin/Globulin Ratio (0.9-2) Influenza Type A (PCR) Neg for Influ A (Neg) Influenza Type B (PCR) Neg for Influ B (Neg) 07/13/19 07/13/19 Range/Units 20:20 21:36 WBC (4.8-10.8) K/uL RBC (4.2-5.4) M/uL Hgb (12.0-16.0) g/dL Hct (37-47) % MCV (80-100) fL MCH (25-34) pg MCHC (32-36) g/dL RDW Std Deviation (36.4-46.3) fL RDW Coeff of Jaylen (11.5-14.5) % Plt Count (130-400) K/uL MPV (7.4-10.4) fL Immature Gran % (Auto) % Neut % (Auto) % Lymph % (Auto) % [place] % (Auto) % Eos % (Auto) % Baso % (Auto) % Immature Gran # (Auto) (0.00-0.02) K/uL Neut # (Auto) (1.4-6.5) K/uL Lymph # (Auto) (1.2-3.4) K/uL [place] # (Auto) (0.11-0.59) K/uL Eos # (Auto) (0-0.5) K/uL Baso # (Auto) (0-0.2) K/uL PT (9.0-12.0) Seconds INR (0.9-1.1) APTT (21.0-31.0) Seconds PTT Ratio Sodium 129 L (136-145) mmol/L Potassium 3.0 L (3.5-5.1) mmol/L Chloride 94 L (98-107) mmol/L Carbon Dioxide 25 (21-32) mmol/L Anion Gap 10.0 (3-11) BUN 21 H (7-18) mg/dl Creatinine 1.68 H (0.6-1.2) mg/dl Est Cr Clr Drug Dosing 33.6 ml/min Est GFR ( Amer) 36.6 Est GFR (Non-Af Amer) 31.5 BUN/Creatinine Ratio 12.6 (10-20) Glucose 145 H (70-99) mg/dl Lactate 1.0 (0.4-2.0) mmol/L Calcium 8.5 (8.5-10.1) mg/dl Magnesium 1.7 L (1.8-2.4) mg/dl Total Bilirubin 0.7 (0.2-1) mg/dl AST 17 (15-37) U/L ALT 20 (12-78) U/L Alkaline Phosphatase 125 H (45-117) U/L Troponin I < 0.015 (0-0.045) ng/ml Total Protein 7.8 (6.4-8.2) gm/dl Albumin 3.0 L (3.4-5.0) gm/dl Globulin 4.8 H (2.5-4.0) gm/dl Albumin/Globulin Ratio 0.6 L (0.9-2) Influenza Type A (PCR) (Neg) Influenza Type B (PCR) (Neg) Imaging Data Radiologist's Impression: Radiology results as stated below per my review and the radiologist's interpretation: SINGLE VIEW CHEST CLINICAL HISTORY: Sepsis. FINDINGS: An AP, portable, upright chest radiograph is compared to study dated 02/26/2009. The cardiomediastinal silhouette is unremarkable. There is airspace consolidation at the right lung base. No large pleural effusion or pneumothorax is seen. The skeletal structures are osteopenic. The bony thorax is grossly intact. IMPRESSION: Right basilar consolidation is typical in appearance for pneumonia. Clinical correlation will be required and radiographic follow-up to resolution is recommended. ACT 112: Negative or not required by law. Electronically signed by: Stan Cunningham M.D. 07/13/2019 9:15 PM ECG Data Attestation: I personally reviewed and interpreted this ECG as follows: Indication: + SOB/dyspnea Rate (beats per minute): 69 Rhythm: + normal sinus ECG ST segments: no ST depression and no ST elevation ECG Findings: + LVH and + Other (Nonspecific T-wave abnormality); no PACs and no PVCs Comparison ECG Date: from (09/30/2013) Change: the following changes noted (T-wave now present) Blood Pressure Blood Pressure Findings: Elevated blood pressure Blood Pressure Disposition: further management by hospitalist MDM Narrative This patient comes in as described above.she has had flulike symptoms with fever body aches and some right-sided chest pain. She has had some shortness of breath as well. IV access established she was hydrated with a normal saline bolus and received some fluid boluses in the ED. Her white count is elevated mildly. Her lactic acid is normal however as is her blood pressure which would go against sepsis. Chest x-ray shows what appears to be a pneumonia in the right base. EKG does not show any acute ischemic changes or ectopy influenza was negative she does have baseline renal insufficiency however on today's labs it is worse than baseline so I do think she is dehydrated. Her creatinines is 1.6. Do not think is likely acute cardiac. I did consider doing a chest CT of her chest and discussed this with the patient. Given her elevation of her creatinine compared to baseline, she would prefer to not have the CAT scan w at this point, I think that is reasonable as I do not think it is likely a PE. She was given Zosyn 4.5 g IV. Blood cultures have been obtained. I do think she needs to be admitted/observed. I did consult the [facility] hospitalist to see her for these measures. Impression & Plan Pneumonia, Dehydration, Weakness, Right-sided chest pain Discharge Plan Visit Data Chief Complaint: Shortness of Breath/Dyspnea Stated Complaint: SOB, WEAK, FEVER ED Provider: Brennan Wyatt Discharge Problem: Pneumonia, Dehydration, Weakness, Right-sided chest pain Patient Disposition: Being Evaluated by Hospitalist Forms Stand Alone Forms: My [facility] Danger Prescriptions Prescriptions: No Action terazosin 2 mg capsule 2 mg PO DAILY Qty: 30 RF: 2 omeprazole 40 mg capsule,delayed release(DR/EC) 40 mg PO DAILY Qty: 30 RF: 2 spironolacton-hydrochlorothiaz 25-25 mg tablet 1 tab PO BID Qty: 30 RF: 2 ibuprofen [Advil] 200 mg Tablet 400 mg PO Q6H PRN (Reason: fever/pain) RF: 0 venlafaxine [Effexor XR] 75 mg capsule,extended release 24hr 75 mg PO DAILY RF: 0 trazodone 50 mg tablet 50 mg PO HS RF: 0 hydroxychloroquine [Plaquenil] 200 mg tablet 200 mg PO BID RF: 0 Referrals Referrals: Aman Street MD [Primary Care Provider] - Discharge Problem: Pneumonia Qualifiers: Pneumonia type: due to unspecified organism Laterality: unspecified laterality Lung location: unspecified part of lung Qualified Code(s): J18.9 - Pneumonia, unspecified organism The scribe's documentation has been prepared under my direction and personally reviewed by me in its entirety. I confirm that the note above accurately reflects all work, treatment, procedures, and medical decision making performed by me.
[2019-07-14] MEDS ORDERED: MAGNESIUM HYDROXIDE SUSP 30 ML UDC PO PRN (01:18)
[2019-07-14] MEDS ORDERED: ALBUT/IPRATROP 3MG/0.5MG NEB 3 ML VIAL NEB PRN (01:18)
[2019-07-14] MEDS ORDERED: ONDANSETRON INJ 2 MG/ML 2 ML VIAL IV PRN (01:18)
[2019-07-14] MEDS ORDERED: ALUMINUM/MAGNESIUM SUSP 30 ML UDC PO PRN (01:18)
[2019-07-14] MEDS ORDERED: cefTRIAXone SODIUM 1,000 MG/50 ML BAG IV STA (01:38)
[2019-07-14] MEDS ORDERED: TRAZODONE HCL 50 MG TAB PO ONE (01:41)
[2019-07-14] MEDS: AZITHROMYCIN 250 MG TAB PO SCH ×2 (02:19→07:21)
--- NOTE | 2019-07-14 02:24 | Billing Data ---
Date of Service July 13, 2019 Coding Level of Care Code 91116 Initial Inpt Care Lvl 3
[2019-07-14] MEDS: POTASSIUM CHLORIDE / WTR 10 MEQ/100 ML PLCT IV SCH ×2 (02:44→04:03)
[2019-07-14 05:05] LABS: Appearance Urine Cloudy (Clear); Bacteria Urine Automated Negative (Negative); Bilirubin Urine Negative (Negative); Blood Urine Negative (Negative); Color Urine Yellow; Epithelial Cell Urine Auto >30 /lpf (0-5); Glucose Urine UA Negative (Negative); Ketones Urine Negative (Negative); Leukocyte Esterase Urine Trace (Negative); Nitrite Urine Negative (Negative); Protein Urine Trace (Negative); Specific Gravity Urine 1.011 (1.000-1.030); Urobilinogen Urine Negative (Negative)
[2019-07-14 05:36] LABS: Mucus Urine Present (None Prsent); RBC Urine Automated 0-4 /hpf (0-4)
[2019-07-14] MEDS: ACETAMINOPHEN 325 MG TAB PO PRN ×3 (06:02→21:39)
[2019-07-14] MEDS: PANTOprazole 40 MG TAB PO SCH (07:21)
[2019-07-14] MEDS: HYDROXYCHLOROQUINE SULFATE 200 MG TAB PO SCH ×2 (07:21→21:40)
[2019-07-14] MEDS: VENLAFAXINE HCL XR 75 MG CAPXR PO SCH (07:21)
[2019-07-14 07:42] LABS: Basophils # (auto) 0.01 K/uL (0-0.2); Basophils % (auto) 0.1 %; Eosinophils # (auto) 0.03 K/uL (0-0.5); Eosinophils % (auto) 0.3 %; Hematocrit (blood only) 33.2 % (37-47); Hemoglobin 11.4 g/dL (12.0-16.0); Immature Granulocytes # (auto) 0.07 K/uL (0.00-0.02); Immature Granulocytes % (auto) 0.7 %; Lymphocytes # (auto) 0.54 K/uL (1.2-3.4); Lymphocytes % (auto) 5.8 %; Mean Corpuscular Hemoglobin 27.4 pg (25-34); Mean Corpuscular Hgb Conc 34.3 g/dL (32-36); Mean Corpuscular Volume 79.8 fL (80-100); Monocytes # (auto) 0.76 K/uL (0.11-0.59); Monocytes % (auto) 8.1 %; Neutrophils # (auto) 7.98 K/uL (1.4-6.5); Platelet Count 198 K/uL (130-400); RDW Coefficient of Variation 13.3 % (11.5-14.5); RDW Standard Deviation 38.8 fL (36.4-46.3); Red Blood Count 4.16 M/uL (4.2-5.4); White Blood Count 9.39 K/uL (4.8-10.8)
[2019-07-14 07:50] LABS: INR 1.1 (0.9-1.1); Prothrombin Time 11.6 Seconds (9.0-12.0)
[2019-07-14 08:06] LABS: BUN Creatinine Ratio 13.8 (10-20); Creatinine Clr Calc Pharmacy 44.6 ml/min; Est GFR (African American) 50.8; Est GFR (Non-African American) 43.8; Magnesium 2.4 mg/dl (1.8-2.4); Phosphorus 1.8 mg/dl (2.5-4.9); Potassium 3.1 mmol/L (3.5-5.1)
[2019-07-14] MEDS ORDERED: POTASSIUM CHLORIDE 20 MEQ TABCR PO STA (08:09)
[2019-07-14] MEDS: POT PHOSPHATE MONOBASIC W/ SOD TAB PO SCH ×4 (08:49→21:41)
[2019-07-14] MEDS: ENOXAPARIN INJ 30 MG/0.3 ML SYR SQ SCH (09:21)
--- NOTE | 2019-07-14 10:01 | CT Scan Report ---
CT SCAN OF THE CHEST WITHOUT IV CONTRAST CLINICAL HISTORY: Pneumonia. COMPARISON STUDY: Chest x-ray dated 07/13/2019. TECHNIQUE: CT scan of the thorax was performed from the thoracic inlet to the upper abdomen. Images are reviewed in the axial, sagittal, and coronal planes. IV contrast was not administered for this ex amination as per the referring clinician. A dose lowering technique was utilized adhering to the karl girishples of KARIME. CT DOSE: 597.01 mGy.cm FINDINGS: Thyroid: Imaged portions of the thyroid gland are normal in size and attenuation. Thoracic aorta: The thoracic aorta is normal in caliber and demonstrates standard 3-vessel arch anato my. Heart: The heart is normal in size and without pericardial effusion. Lungs and pleural spaces: There is dense right lower lobe airspace consolidation and a trace right pl eural effusion. Scattered pulmonary cysts are incidentally noted. There is a 5 mm left lower lobe pul monary nodule seen on image #125. There are least 4 right middle lobe pulmonary nodules measuring up to 3 mm. The trachea and central airways are clear. Mediastinum: There are scattered subcentimeter mediastinal lymph nodes. Johana: Not well assessed without IV contrast. Axillae: There is no axillary lymphadenopathy. Upper abdomen: There is a small hiatal hernia. Partially visualized upper abdominal viscera is otherw ise within normal limits. Skeletal structures: The skeletal structures are osteopenic. Degenerative change is noted in the thor acic spine. No lytic or blastic bony lesions are seen. IMPRESSION: 1. Right lower lobe pneumonia and small parapneumonic effusion. Radiographic follow-up to resolution is recommended. 2. There are scattered (at least 5) low suspicion pulmonary nodules measure up to 5 mm. These can be followed as per the Fleischner criteria. See below. Please refer to below summary of Fleischner criteria recommendations for follow-up of incidental CT n odules (Bryan Colbert, Guidelines for management of small pulmonary nodules detected on CT scans: A sta tement from the Fleischner Society, Radiology 237: [phone].) SOLID NODULES Solitary nodule size: <6 mm * low risk patients: no follow-up needed * high risk patients: optional CT at 12 months Solitary nodule size: 6-8 mm * low risk patients: follow-up at 6-12 months, then consider further follow-up at 18-24 months * high risk patients: initial follow-up CT at 6-12 months and then at 18-24 months if no change Solitary nodule size: >8 mm * either low or high risk patients - consider follow-up CT at 3 months, and/or CT-PET, and/or biopsy Multiple nodules size: <6 mm * low risk patients: no routine follow-up * high risk patients: optional CT at 12 months Multiple nodules size: 6-8 mm * low risk patients: follow-up at 3-6 months, then consider further follow-up at 18-24 months * high risk patients: follow-up at 3-6 months, then at 18-24 months if no change Multiple nodules size: >8 mm * low risk patients: follow-up at 3-6 months, then consider further follow-up at 18-24 months * high risk patients: follow-up at 3-6 months, then at 18-24 months if no change Note: newly detected indeterminate nodule in persons 35 years of age or older. * low risk patients: minimal or absent history of smoking and/or other known risk factors * high risk patients: history of smoking or of other known risk factors (e.g. first degree relative with lung cancer, or exposure to asbestos, radon, uranium) * if a nodule up to 8 mm is partly solid or is ground glass further follow-up is required after 24 m onths to exclude possible slow growing adenocarcinoma (DEJUAN) SUBSOLID NODULES Solitary pure ground-glass nodule * nodule size <6 mm - no CT follow-up required * nodule size >=6 mm - follow-up CT at 6-12 months, then every 2 years until 5 years Solitary part-solid nodule * nodule size <6 mm - no CT follow-up required * nodule size >=6 mm - follow-up CT at 3-6 months. If unchanged, and solid component remains <6 mm, then annual follow-up for 5 years Multiple subsolid nodules * nodule size <6 mm - follow-up CT at 3-6 months, consider further follow-up at 2 and 4 years if sta ble * nodule size >=6 mm - follow-up CT at 3-6 months, subsequent management based on the most suspiciou s nodule(s) ACT 112: Negative or not required by law. Electronically signed by: Stan Cunningham M.D. 07/14/2019 9:59 AM
--- NOTE | 2019-07-14 15:07 | Consultation Report ---
DATE OF CONSULTATION: 07/14/2019 REASON FOR CONSULTATION: Questionable empyema. HISTORY OF PRESENT ILLNESS: Manju Murphy is a 63-year-old female who presented with a right basilar pneumonia and the CT scan showed a small amount of fluid. I was asked to comment from a thoracic surgery standpoint as to whether or not this would require drainage. The patient became quite ill quite quickly. She did not receive antibiotics before arriving here in the hospital. She developed fever with dyspnea, with myalgias, for which she took Advil. She does have some chest pain on the right with some diaphoresis and fever, although she states it is better. She has also had some headaches. She had no GI symptoms. PAST MEDICAL HISTORY: 1. Chronic anemia. 2. Renal insufficiency. 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 4. Sleep apnea. 5. Gastroesophageal reflux disease. 6. Lumbosacral disc disease. 7. Rheumatoid arthritis. 8. Obesity. PAST SURGICAL HISTORY: 3, para 3. SOCIAL HISTORY: The patient lives alone with her dog. She does not smoke. 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 She has a supportive family. FAMILY MEDICAL HISTORY: The patient has 3 children, multiple grandchildren are healthy. Her father at 83 after a second open heart surgery. Mother at 72 from pulmonary fibrosis. Her siblings are healthy also. REVIEW OF SYSTEMS: Please see the history of present illness. The patient has no GI symptoms. She denies any visual or auditory problems. She has had no skin breakdown. She does get swelling in her legs so she keeps in the dependent position. She has had no joint swelling or arthralgias, although she does have some myalgias. Neurologically, she has had no symptoms such as amaurosis fugax or transient ischemic attack. PHYSICAL EXAMINATION: GENERAL: This is a 4 feet 11 inch, 212 pound female who is awake, alert and oriented. HEENT: Her extraocular movements are intact. She wears glasses. Teeth are in fairly good repair. Tongue is midline. NECK: Supple. She has no carotid bruits or lymphadenopathy. She does have some rales and crackles in the right posterolateral base. HEART: She has a regular rate and rhythm of her heart without a significant rub. ABDOMEN: Soft, nontender, obese. She has excellent peripheral pulses. No joint effusions. EXTREMITIES: She has trace edema. NEUROLOGIC: She has no focal deficits. Cranial nerves II-XII are intact. ASSESSMENT AND PLAN: Pneumonic process right lung. There is not enough fluid for us to address. I would continue with antibiotics and follow her with chest x-rays. We may want to repeat a CT scan and I am hopeful she will respond to antibiotics.
--- NOTE | 2019-07-14 15:36 | Hospitalist Progress Note ---
Date of Service July 14, 2019 Assessment & Plan (1) Pneumonia: * 63 y.o. female with past medical hx of RA, Raynaud's, HTN, anxiety, GERD, CARLOS presented with complaints of fever and shortness of breath. Admitted for CAP and LIBRADO. Zosyn and 1L NSS in ED. WBC 11.95 * CXR with right basilar consolidation with clinical correlation consistent with pneumonia. * CT with evidence of RLL pneumonia with small parapneumonic effusion. follow up imaging recommended. Of note, also with several scattered pulmonary nodules (low suspicion) --> 5mm left lower lobe pulmonary nodule seen on image #125. At least 4 RML nodules measuring up to 3 mm. Never a smoker, no recent weight loss. * Consulted Dr. Little -- appreciate recs * Continue Azithromycin (on day 2 of treatment, to be completed on 07/17) -- decreased to 250mg for tomorrow * Continue Ceftriaxone 1gm IV (currently on day 2) * Supplemental O2 as needed, although patient 95% on RA and no s/sx respiratory distress * WBC trending down, 9.39k -- continue to trend * Influenza negative * Telemetry- patient has been NSR in the 70s * DuoNeb Q4 prn * Fever 38C afternoon 07/14-- blood cultures obtained and pending, lactic 1.1 (2) LIBRADO (acute kidney injury): * Creatinine 1.68 on admit -- baseline ~1.3 per records. 1L NSS in ED. UA with trace protein, 10-30WBC, >30 epi, 5-10 granular casts. Urine Osm low at 441. Urine random sodium 81. Urine culture pending. * Hold HCTZ/spironolactone * Improvement of Cr to 1.28 * Encourage PO intake * Continue to monitor (3) Hypokalemia: * 3.0 in ED in setting of hypomag (1.7) -- given 40 meq PO and 20meq IV. Most likely from poor PO intake * K still low at 3.1 despite mag 2.4 -- given 40meq KCL PO * Continue to monitor (4) Dehydration: * Appears dry on labs with elevated Creatinine on admission as above, received 1L NSS. Given additional 1L overnight. * Conitnue NS @ 80/hr until AM * Monitor AM labs (5) Hypophosphatemia: * Phos 1.8 * Given oral and IV replacement * Monitor in AM (6) Hyponatremia: * Na 129 on admission. * Improvement to 135 * Continue to monitor (7) Hypomagnesemia: * 1.7 in ED. Replaced with 1gm IV and Mag 400mg PO x 1. * Mag 2.4 * Monitor in AM if potassium still low (8) Hypertension: * Chronic. Stable. Currently 119/74 * Hold home diuretics in setting of LIBRADO/elevated Creatinine -- likely to be resumed in AM (9) Rheumatoid arthritis: * Chronic. Stable * continue with home Plaquenil 200mg PO BID (10) Anxiety: * Chronic. Stable -- although, patient did not take yesterday and did feel effects * Continue with home Effexor XR 75mg daily (11) Sleep apnea: * CPAP ordered, CARLOS, did not bring hers, she is unsure of settings -- patient's daughter to bring her mask in this evening (12) Insomnia: * continue with home Trazodone 50mg PO qHS (13) Gastroesophageal reflux disease: * continue with home PPI -- patient on omeprazole at home -- substituted for protonix 40mg (14) Raynauds phenomenon: * Chronic. Stable. * Patient on terazosin 2mg PRN but has not needed it recently. She states she only takes when it's cold outside (15) Abnormal INR: * No clear etiology, suspect fatty liver based on BMI. INR improved to 1.1 from 1.2 (16) DVT prophylaxis: * SQ Lovenox 30mg SQ - renally dosed given LIBRADO Dispo: possible discharge tomorrow evening or monday Supervising Physician Co-Signing Physician Notes EMMIE Supervision Note: I did not personally see or examine the patient today, but I verified all bailon points of EMMIE Becker's assessment and plan with the following exceptions/additions: None Subjective Patient evaluated this morning at bedside. States she did not get a very restful night's sleep due to the bed. Asked aid in room to provide additional pillow in front of patient. She states her daughter is bringing in her CPAP mask to be used with the hospital's machine. Denies any further shortness of breath. Denies ever having any productive cough. States she can tell that she did not take her effexor in the past day or two and she noticed that she is more tearful. She states this has happened to her in the past. She states she did not take her medication secondary to not feeling well. 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 Reports no new stressors, but that she does tend to worry about her children frequently. Reviewed MRSA swab and imaging, CT chest and labs. States she did have fever, but no documented fevers until this afternoon with T of 38 degrees Celsius. Review of Systems Review of Systems: All systems reviewed & are unremarkable except as noted in HPI & below Constitutional: + body aches Physical Exam Constitutional: WD/WN, vitals as above + obese; no acute distress Eyes: + anicteric sclerae; no conjunctival abnormality ENMT: Ears: no external ear abnormality Nose: no external nose abnormality Mouth: no lip abnormality Mallampati Class: III slightly dry mucus membranes Neck: no tracheal deviation Respiratory: normal respiratory effort; no respiratory distress and no labored breathing Auscultation: + diminished lung sounds (right base) and + crackles (right posterior lung field, RML, RLL); no wheezes Cardiovascular: RRR, no murmur, no edema Gastrointestinal (Abdomen): normal bowel sounds, soft, nontender, no hepatosplenomegaly Skin: no rashes, warm and dry Neurologic: moves all extremities and awake Speech / Cognition: normal speech Psychiatric: Orientation: alert and oriented x 3 Affect: + anxious affect Lymphatic: no cervical or axillary lymphadenopathy Results & Data ([facility]) Vital Signs (Past 12 Hours) Vital Signs Temp 37.3 C 07/14/19 17:01 Pulse 83 07/14/19 16:00 Resp 20 07/14/19 15:30 BP 119/74 07/14/19 15:30 Pulse Ox 95 07/14/19 15:30 Intake & Output 07/13/19 07/14/19 07/14/19 18:59 06:59 18:59 Intake Total 2570 / 2570 1595 / 1595 Balance 2570 / 2570 1595 / 1595 Weight 96.3 kg Intake: IV 2570 / 2570 1000 / 1000 MAGNESIUM SULFATE / D5W 1 gm In 200 / 200 100 ml @ 100 mls/hr IV ONE ONE Rx#:[id number] ZOSYN 4.5 gm In 120 ml @ 240 120 / 120 mls/hr IV NOW ONE Rx#:[id number] K RIDER / WTR 10 meq In 100 ml 200 / 200 @ 100 mls/hr IV Q1H MURALI Rx#: [id number] Nss 1000ML 1,000 ml @ 125 mls/ 2000 / 2000 1000 / 1000 hr IV .Q8H MURALI Rx#:[id number] ROCEPHIN 1,000 mg In 50 ml @ 50 / 50 100 mls/hr IV NOW STA Rx#: [id number] Oral 595 / 595 Laboratory Results 07/14/19 07/14/19 07/14/19 Range/Units Unknown 16:39 15:24 WBC (4.8-10.8) K/uL RBC (4.2-5.4) M/uL Hgb (12.0-16.0) g/dL Hct (37-47) % MCV (80-100) fL MCH (25-34) pg MCHC (32-36) g/dL RDW Std Deviation (36.4-46.3) fL RDW Coeff of Jaylen (11.5-14.5) % Plt Count (130-400) K/uL MPV (7.4-10.4) fL Immature Gran % (Auto) % Neut % (Auto) % Lymph % (Auto) % [place] % (Auto) % Eos % (Auto) % Baso % (Auto) % Immature Gran # (Auto) (0.00-0.02) K/uL Neut # (Auto) (1.4-6.5) K/uL Lymph # (Auto) (1.2-3.4) K/uL [place] # (Auto) (0.11-0.59) K/uL Eos # (Auto) (0-0.5) K/uL Baso # (Auto) (0-0.2) K/uL PT (9.0-12.0) Seconds INR (0.9-1.1) APTT (21.0-31.0) Seconds PTT Ratio Sodium (136-145) mmol/L Potassium (3.5-5.1) mmol/L Chloride (98-107) mmol/L Carbon Dioxide (21-32) mmol/L Anion Gap (3-11) BUN (7-18) mg/dl Creatinine (0.6-1.2) mg/dl Est Cr Clr Drug Dosing ml/min Est GFR ( Amer) Est GFR (Non-Af Amer) BUN/Creatinine Ratio (10-20) Glucose (70-99) mg/dl Lactate 1.1 (0.4-2.0) mmol/L Calcium (8.5-10.1) mg/dl Phosphorus (2.5-4.9) mg/dl Magnesium (1.8-2.4) mg/dl Total Bilirubin (0.2-1) mg/dl AST (15-37) U/L ALT (12-78) U/L Alkaline Phosphatase (45-117) U/L Troponin I (0-0.045) ng/ml Total Protein (6.4-8.2) gm/dl Albumin (3.4-5.0) gm/dl Globulin (2.5-4.0) gm/dl Albumin/Globulin Ratio (0.9-2) Urine Color Urine Appearance (Clear) Urine pH (4.5-7.5) Ur Specific [place] (1.000-1.030) Urine Protein (Negative) Urine Glucose (UA) (Negative) Urine Ketones (Negative) Urine Blood (Negative) Urine Nitrite (Negative) Urine Bilirubin (Negative) Urine Urobilinogen (Negative) Ur Leukocyte Esterase (Negative) Urine WBC (Auto) (0-5) /hpf Urine RBC (Auto) (0-4) /hpf U Hyaline Cast (Auto) (0-5) /lpf U Epithel Cells (Auto) (0-5) /lpf Urine Bacteria (Auto) (Negative) Ur Renal Epithelial Cell Granular Casts (0) /lpf Urine Mucus (None Prsent) Urine Yeast Urine Osmolality (500-800) mOsm/kg Ur Random Sodium 81 mmol/L Nasal Screen MRSA (PCR) Negative (Negative) Influenza Type A (PCR) (Neg) Influenza Type B (PCR) (Neg) 07/14/19 07/14/19 07/14/19 Range/Units 15:24 07:08 07:08 WBC (4.8-10.8) K/uL RBC (4.2-5.4) M/uL Hgb (12.0-16.0) g/dL Hct (37-47) % MCV (80-100) fL MCH (25-34) pg MCHC (32-36) g/dL RDW Std Deviation (36.4-46.3) fL RDW Coeff of Jaylen (11.5-14.5) % Plt Count (130-400) K/uL MPV (7.4-10.4) fL Immature Gran % (Auto) % Neut % (Auto) % Lymph % (Auto) % [place] % (Auto) % Eos % (Auto) % Baso % (Auto) % Immature Gran # (Auto) (0.00-0.02) K/uL Neut # (Auto) (1.4-6.5) K/uL Lymph # (Auto) (1.2-3.4) K/uL [place] # (Auto) (0.11-0.59) K/uL Eos # (Auto) (0-0.5) K/uL Baso # (Auto) (0-0.2) K/uL PT 11.6 (9.0-12.0) Seconds INR 1.1 (0.9-1.1) APTT (21.0-31.0) Seconds PTT Ratio Sodium 135 L (136-145) mmol/L Potassium 3.1 L (3.5-5.1) mmol/L Chloride 103 (98-107) mmol/L Carbon Dioxide 23 (21-32) mmol/L Anion Gap 9.0 (3-11) BUN 18 (7-18) mg/dl Creatinine 1.28 H D (0.6-1.2) mg/dl Est Cr Clr Drug Dosing 44.6 ml/min Est GFR ( Amer) 50.8 Est GFR (Non-Af Amer) 43.8 BUN/Creatinine Ratio 13.8 (10-20) Glucose 107 H (70-99) mg/dl Lactate (0.4-2.0) mmol/L Calcium 8.0 L (8.5-10.1) mg/dl Phosphorus 1.8 L (2.5-4.9) mg/dl Magnesium 2.4 (1.8-2.4) mg/dl Total Bilirubin (0.2-1) mg/dl AST (15-37) U/L ALT (12-78) U/L Alkaline Phosphatase (45-117) U/L Troponin I (0-0.045) ng/ml Total Protein (6.4-8.2) gm/dl Albumin (3.4-5.0) gm/dl Globulin (2.5-4.0) gm/dl Albumin/Globulin Ratio (0.9-2) Urine Color Urine Appearance (Clear) Urine pH (4.5-7.5) Ur Specific [place] (1.000-1.030) Urine Protein (Negative) Urine Glucose (UA) (Negative) Urine Ketones (Negative) Urine Blood (Negative) Urine Nitrite (Negative) Urine Bilirubin (Negative) Urine Urobilinogen (Negative) Ur Leukocyte Esterase (Negative) Urine WBC (Auto) (0-5) /hpf Urine RBC (Auto) (0-4) /hpf U Hyaline Cast (Auto) (0-5) /lpf U Epithel Cells (Auto) (0-5) /lpf Urine Bacteria (Auto) (Negative) Ur Renal Epithelial Cell Granular Casts (0) /lpf Urine Mucus (None Prsent) Urine Yeast Urine Osmolality 441 L (500-800) mOsm/kg Ur Random Sodium mmol/L Nasal Screen MRSA (PCR) (Negative) Influenza Type A (PCR) (Neg) Influenza Type B (PCR) (Neg) 07/14/19 07/13/19 07/13/19 Range/Units 07:08 23:40 21:36 WBC 9.39 (4.8-10.8) K/uL RBC 4.16 L (4.2-5.4) M/uL Hgb 11.4 L (12.0-16.0) g/dL Hct 33.2 L (37-47) % MCV 79.8 L (80-100) fL MCH 27.4 (25-34) pg MCHC 34.3 (32-36) g/dL RDW Std Deviation 38.8 (36.4-46.3) fL RDW Coeff of Jaylen 13.3 (11.5-14.5) % Plt Count 198 (130-400) K/uL MPV 11.0 H (7.4-10.4) fL Immature Gran % (Auto) 0.7 % Neut % (Auto) 85.0 % Lymph % (Auto) 5.8 % [place] % (Auto) 8.1 % Eos % (Auto) 0.3 % Baso % (Auto) 0.1 % Immature Gran # (Auto) 0.07 H (0.00-0.02) K/uL Neut # (Auto) 7.98 H (1.4-6.5) K/uL Lymph # (Auto) 0.54 L (1.2-3.4) K/uL Lab[place] # (Auto) 0.76 H (0.11-0.59) K/uL Eos # (Auto) 0.03 (0-0.5) K/uL Baso # (Auto) 0.01 (0-0.2) K/uL PT (9.0-12.0) Seconds INR (0.9-1.1) APTT (21.0-31.0) Seconds PTT Ratio Sodium (136-145) mmol/L Potassium (3.5-5.1) mmol/L Chloride (98-107) mmol/L Carbon Dioxide (21-32) mmol/L Anion Gap (3-11) BUN (7-18) mg/dl Creatinine (0.6-1.2) mg/dl Est Cr Clr Drug Dosing ml/min Est GFR ( Amer) Est GFR (Non-Af Amer) BUN/Creatinine Ratio (10-20) Glucose (70-99) mg/dl Lactate 1.0 (0.4-2.0) mmol/L Calcium (8.5-10.1) mg/dl Phosphorus (2.5-4.9) mg/dl Magnesium (1.8-2.4) mg/dl Total Bilirubin (0.2-1) mg/dl AST (15-37) U/L ALT (12-78) U/L Alkaline Phosphatase (45-117) U/L Troponin I (0-0.045) ng/ml Total Protein (6.4-8.2) gm/dl Albumin (3.4-5.0) gm/dl Globulin (2.5-4.0) gm/dl Albumin/Globulin Ratio (0.9-2) Urine Color Yellow Urine Appearance Cloudy A (Clear) Urine pH 6.0 (4.5-7.5) Ur Specific [place] 1.011 (1.000-1.030) Urine Protein Trace H (Negative) Urine Glucose (UA) Negative (Negative) Urine Ketones Negative (Negative) Urine Blood Negative (Negative) Urine Nitrite Negative (Negative) Urine Bilirubin Negative (Negative) Urine Urobilinogen Negative (Negative) Ur Leukocyte Esterase Trace H (Negative) Urine WBC (Auto) 10-30 H (0-5) /hpf Urine RBC (Auto) 0-4 (0-4) /hpf U Hyaline Cast (Auto) 1-5 (0-5) /lpf U Epithel Cells (Auto) >30 H (0-5) /lpf Urine Bacteria (Auto) Negative (Negative) Ur Renal Epithelial Cell Not Reportable Granular Casts 5-10 H (0) /lpf Urine Mucus Present A (None Prsent) Urine Yeast Not Reportable Urine Osmolality (500-800) mOsm/kg Ur Random Sodium mmol/L Nasal Screen MRSA (PCR) (Negative) Influenza Type A (PCR) (Neg) Influenza Type B (PCR) (Neg) 07/13/19 07/13/19 07/13/19 Range/Units 20:20 20:20 20:20 WBC 11.95 H (4.8-10.8) K/uL RBC 4.45 (4.2-5.4) M/uL Hgb 12.7 (12.0-16.0) g/dL Hct 36.5 L (37-47) % MCV 82.0 (80-100) fL MCH 28.5 (25-34) pg MCHC 34.8 (32-36) g/dL RDW Std Deviation 40.2 (36.4-46.3) fL RDW Coeff of Jaylen 13.2 (11.5-14.5) % Plt Count 216 (130-400) K/uL MPV 11.2 H (7.4-10.4) fL Immature Gran % (Auto) 0.8 % Neut % (Auto) 89.3 % Lymph % (Auto) 4.1 % [place] % (Auto) 5.7 % Eos % (Auto) 0.0 % Baso % (Auto) 0.1 % Immature Gran # (Auto) 0.09 H (0.00-0.02) K/uL Neut # (Auto) 10.68 H (1.4-6.5) K/uL Lymph # (Auto) 0.49 L (1.2-3.4) K/uL [place] # (Auto) 0.68 H (0.11-0.59) K/uL Eos # (Auto) 0.00 (0-0.5) K/uL Baso # (Auto) 0.01 (0-0.2) K/uL PT 12.1 H (9.0-12.0) Seconds INR 1.2 H (0.9-1.1) APTT 29.2 (21.0-31.0) Seconds PTT Ratio 1.1 Sodium 129 L (136-145) mmol/L Potassium 3.0 L (3.5-5.1) mmol/L Chloride 94 L (98-107) mmol/L Carbon Dioxide 25 (21-32) mmol/L Anion Gap 10.0 (3-11) BUN 21 H (7-18) mg/dl Creatinine 1.68 H (0.6-1.2) mg/dl Est Cr Clr Drug Dosing 33.6 ml/min Est GFR ( Amer) 36.6 Est GFR (Non-Af Amer) 31.5 BUN/Creatinine Ratio 12.6 (10-20) Glucose 145 H (70-99) mg/dl Lactate (0.4-2.0) mmol/L Calcium 8.5 (8.5-10.1) mg/dl Phosphorus (2.5-4.9) mg/dl Magnesium 1.7 L (1.8-2.4) mg/dl Total Bilirubin 0.7 (0.2-1) mg/dl AST 17 (15-37) U/L ALT 20 (12-78) U/L Alkaline Phosphatase 125 H (45-117) U/L Troponin I < 0.015 (0-0.045) ng/ml Total Protein 7.8 (6.4-8.2) gm/dl Albumin 3.0 L (3.4-5.0) gm/dl Globulin 4.8 H (2.5-4.0) gm/dl Albumin/Globulin Ratio 0.6 L (0.9-2) Urine Color Urine Appearance (Clear) Urine pH (4.5-7.5) Ur Specific [place] (1.000-1.030) Urine Protein (Negative) Urine Glucose (UA) (Negative) Urine Ketones (Negative) Urine Blood (Negative) Urine Nitrite (Negative) Urine Bilirubin (Negative) Urine Urobilinogen (Negative) Ur Leukocyte Esterase (Negative) Urine WBC (Auto) (0-5) /hpf Urine RBC (Auto) (0-4) /hpf U Hyaline Cast (Auto) (0-5) /lpf U Epithel Cells (Auto) (0-5) /lpf Urine Bacteria (Auto) (Negative) Ur Renal Epithelial Cell Granular Casts (0) /lpf Urine Mucus (None Prsent) Urine Yeast Urine Osmolality (500-800) mOsm/kg Ur Random Sodium mmol/L Nasal Screen MRSA (PCR) (Negative) Influenza Type A (PCR) (Neg) Influenza Type B (PCR) (Neg) 07/13/19 Range/Units 20:15 WBC (4.8-10.8) K/uL RBC (4.2-5.4) M/uL Hgb (12.0-16.0) g/dL Hct (37-47) % MCV (80-100) fL MCH (25-34) pg MCHC (32-36) g/dL RDW Std Deviation (36.4-46.3) fL RDW Coeff of Jaylen (11.5-14.5) % Plt Count (130-400) K/uL MPV (7.4-10.4) fL Immature Gran % (Auto) % Neut % (Auto) % Lymph % (Auto) % [place] % (Auto) % Eos % (Auto) % Baso % (Auto) % Immature Gran # (Auto) (0.00-0.02) K/uL Neut # (Auto) (1.4-6.5) K/uL Lymph # (Auto) (1.2-3.4) K/uL [place] # (Auto) (0.11-0.59) K/uL Eos # (Auto) (0-0.5) K/uL Baso # (Auto) (0-0.2) K/uL PT (9.0-12.0) Seconds INR (0.9-1.1) APTT (21.0-31.0) Seconds PTT Ratio Sodium (136-145) mmol/L Potassium (3.5-5.1) mmol/L Chloride (98-107) mmol/L Carbon Dioxide (21-32) mmol/L Anion Gap (3-11) BUN (7-18) mg/dl Creatinine (0.6-1.2) mg/dl Est Cr Clr Drug Dosing ml/min Est GFR ( Amer) Est GFR (Non-Af Amer) BUN/Creatinine Ratio (10-20) Glucose (70-99) mg/dl Lactate (0.4-2.0) mmol/L Calcium (8.5-10.1) mg/dl Phosphorus (2.5-4.9) mg/dl Magnesium (1.8-2.4) mg/dl Total Bilirubin (0.2-1) mg/dl AST (15-37) U/L ALT (12-78) U/L Alkaline Phosphatase (45-117) U/L Troponin I (0-0.045) ng/ml Total Protein (6.4-8.2) gm/dl Albumin (3.4-5.0) gm/dl Globulin (2.5-4.0) gm/dl Albumin/Globulin Ratio (0.9-2) Urine Color Urine Appearance (Clear) Urine pH (4.5-7.5) Ur Specific [place] (1.000-1.030) Urine Protein (Negative) Urine Glucose (UA) (Negative) Urine Ketones (Negative) Urine Blood (Negative) Urine Nitrite (Negative) Urine Bilirubin (Negative) Urine Urobilinogen (Negative) Ur Leukocyte Esterase (Negative) Urine WBC (Auto) (0-5) /hpf Urine RBC (Auto) (0-4) /hpf U Hyaline Cast (Auto) (0-5) /lpf U Epithel Cells (Auto) (0-5) /lpf Urine Bacteria (Auto) (Negative) Ur Renal Epithelial Cell Granular Casts (0) /lpf Urine Mucus (None Prsent) Urine Yeast Urine Osmolality (500-800) mOsm/kg Ur Random Sodium mmol/L Nasal Screen MRSA (PCR) (Negative) Influenza Type A (PCR) Neg for Influ A (Neg) Influenza Type B (PCR) Neg for Influ B (Neg) Diagnostic Findings CT Chest IMPRESSION: 1. Right lower lobe pneumonia and small parapneumonic effusion. Radiographic follow-up to resolution is recommended. 2. There are scattered (at least 5) low suspicion pulmonary nodules measure up to 5 mm. These can be followed as per the Fleischner criteria. PG Care Time/CCT Total # of Minutes Spent Total Time Spent with Patient: Total time spent is greater than 50% in coordination of care (as documented) at patient's floor/unit and/or counseling patient: Coding Level of Care Code 09753 Subseq Hosp Care Lvl 3 Diagnoses Pneumonia J18.9 Laterality: unspecified laterality Lung location: unspecified part of lung Pneumonia type: due to unspecified organism LIBRADO (acute kidney injury) N17.9 Hypokalemia E87.6 Dehydration E86.0 Hypophosphatemia E83.39 Hyponatremia E87.1 Hypomagnesemia E83.42 Hypertension I10 Rheumatoid arthritis M06.9 Anxiety F41.9 Sleep apnea G47.30 Insomnia G47.00 Gastroesophageal reflux disease K21.9 Raynauds phenomenon I73.00 Abnormal INR R79.1 DVT prophylaxis Z29.9 (1) Pneumonia Laterality: unspecified laterality Lung location: unspecified part of lung Pneumonia type: due to unspecified organism Qualified Code(s): J18.9 - Pneumonia, unspecified organism
[2019-07-14] MEDS: SODIUM CHLORIDE 0.9% 1000ML 1,000 ML IV SCH (17:01)
[2019-07-14] MEDS ORDERED: SODIUM PHOSPHATE 3 MMOL/1 ML INFUSION IV STA (18:49)
[2019-07-14] MEDS ORDERED: SODIUM PHOSPHATE 9 MMOL in SODIUM CHLORIDE 0.9% 250 ML IV ONE (19:30)
[2019-07-14] MEDS: TRAZODONE HCL 50 MG TAB PO SCH (21:40)
--- NOTE | 2019-07-14 21:56 | Electrocardiogram Report ---
Test Reason : Blood Pressure : / mmHG Vent. Rate : 069 BPM Atrial Rate : 069 BPM P-R Int : 190 ms QRS Dur : 074 ms QT Int : 418 ms P-R-T Axes : 044 -19 009 degrees QTc Int : 447 ms Normal sinus rhythm Moderate voltage criteria for LVH, may be normal variant Cannot rule out Inferior infarct Abnormal ECG When compared with ECG of 30-SEP-2013 10:52, Inferior infarct is now Present Confirmed by Deniz Currie ([id number]) on 07/14/2019 9:56:00 PM Referred By: REFERRED SELF Confirmed By:Deniz Currie
[2019-07-15] MEDS: cefTRIAXone SODIUM 2,000 MG in DEXTROSE 5% 50 ML IV SCH (02:15)
[2019-07-15 07:37] LABS: Basophils # (auto) 0.01 K/uL (0-0.2); Basophils % (auto) 0.1 %; Eosinophils # (auto) 0.06 K/uL (0-0.5); Eosinophils % (auto) 0.7 %; Hematocrit (blood only) 33.6 % (37-47); Hemoglobin 11.4 g/dL (12.0-16.0); Immature Granulocytes # (auto) 0.09 K/uL (0.00-0.02); Immature Granulocytes % (auto) 1.1 %; Lymphocytes # (auto) 0.88 K/uL (1.2-3.4); Lymphocytes % (auto) 10.8 %; Mean Corpuscular Hemoglobin 27.7 pg (25-34); Mean Corpuscular Hgb Conc 33.9 g/dL (32-36); Mean Corpuscular Volume 81.8 fL (80-100); Monocytes # (auto) 0.92 K/uL (0.11-0.59); Monocytes % (auto) 11.3 %; Neutrophils # (auto) 6.18 K/uL (1.4-6.5); Platelet Count 224 K/uL (130-400); RDW Coefficient of Variation 13.6 % (11.5-14.5); RDW Standard Deviation 41.2 fL (36.4-46.3); Red Blood Count 4.11 M/uL (4.2-5.4); White Blood Count 8.14 K/uL (4.8-10.8)
--- NOTE | 2019-07-15 08:10 | XRay Report ---
XR chest 2V PA/lateral CLINICAL HISTORY: pneumonia COMPARISON STUDY: Chest CT July 14, 2019. FINDINGS: There is no pneumothorax. A trace right pleural effusion is noted. Dense right lower lobe c onsolidation persists. There is no evidence for pulmonary edema. Cardiomediastinal silhouette is norm al. IMPRESSION: No significant change in right lower lobe pneumonia. Trace right pleural effusion. ACT 112: Negative or not required by law. Electronically signed by: Douglas Guaman M.D. 07/15/2019 8:08 AM
[2019-07-15] MEDS: PANTOprazole 40 MG TAB PO SCH (08:17)
[2019-07-15] MEDS: ENOXAPARIN INJ 30 MG/0.3 ML SYR SQ SCH ×2 (08:17→10:44)
[2019-07-15] MEDS: AZITHROMYCIN 250 MG TAB PO SCH (08:18)
[2019-07-15] MEDS: HYDROXYCHLOROQUINE SULFATE 200 MG TAB PO SCH ×2 (08:19→20:09)
[2019-07-15] MEDS: VENLAFAXINE HCL XR 75 MG CAPXR PO SCH (08:19)
[2019-07-15] MEDS: SODIUM CHLORIDE 0.9% 1000ML 1,000 ML IV SCH (08:20)
[2019-07-15 08:27] LABS: Albumin Globulin Ratio 0.6 (0.9-2); Albumin Level 2.5 gm/dl (3.4-5.0); BUN Creatinine Ratio 10.5 (10-20); Bilirubin,Total 0.3 mg/dl (0.2-1); Calcium 8.5 mg/dl (8.5-10.1); Creatinine Clr Calc Pharmacy 46.9 ml/min; Est GFR (African American) 53.8; Est GFR (Non-African American) 46.5; Globulin 4.4 gm/dl (2.5-4.0); Phosphorus 3.2 mg/dl (2.5-4.9); Potassium 3.7 mmol/L (3.5-5.1); Total Protein 6.9 gm/dl (6.4-8.2)
[2019-07-15] MEDS: ACETAMINOPHEN 325 MG TAB PO PRN ×3 (10:38→23:43)
--- NOTE | 2019-07-15 11:19 | Progress Note ---
DATE: 07/15/2019 Manju was seen today and she feels "great." She states that she is much improved. She is breathing much better. She sounds better on exam. Her x-ray looks about the same. She really does not have much in the way of fluid and I would simply push on with antibiotics with her. We will sign off and please call if needed.
--- NOTE | 2019-07-15 16:37 | Hospitalist Progress Note ---
Date of Service July 15, 2019 Assessment & Plan (1) Pneumonia: 63 y.o. female with past medical hx of RA, Raynaud's, HTN, anxiety, GERD, CARLOS presented with complaints of fever and shortness of breath. Admitted for CAP and LIBRADO. Zosyn and 1L NSS in ED. WBC 11.95 * CT with evidence of RLL pneumonia with small parapneumonic effusion. follow up imaging recommended. Of note, also with several scattered pulmonary nodules (low suspicion) --> 5mm left lower lobe pulmonary nodule seen on image #125. At least 4 RML nodules measuring up to 3 mm. Never a smoker, no recent weight loss. * Consulted Dr. Little -- appreciate recs * Continue azithromycin (on day 2 of treatment, to be completed on 07/17) -- decreased to 250mg for tomorrow * Continue ceftriaxone (2) LIBRADO (acute kidney injury): Creatinine 1.68 on admit -- baseline ~1.3 per records. 1L NSS in ED. UA with trace protein, 10-30WBC, >30 epi, 5-10 granular casts. Urine Osm low at 441. Urine random sodium 81. Urine culture pending. * Hold HCTZ/spironolactone * Improvement of Cr to 1.28 * Continue to monitor - Cr is 1.22. (3) Hypertension: Chronic. Stable. Currently 125/75. * Hold home diuretics in setting of LIBRADO/elevated creatinine (4) Rheumatoid arthritis: Chronic. Stable. * Continue with home Plaquenil 200mg PO BID (5) Anxiety: Chronic. Stable. * Continue with home Effexor XR 75mg daily (6) Sleep apnea: * CPAP ordered, CARLOS, did not bring hers, she is unsure of settings. (7) Insomnia: * Continue with home Trazodone 50mg PO qHS (8) Gastroesophageal reflux disease: * Continue with home PPI -- patient on omeprazole at home -- substituted for protonix 40mg (9) Raynauds phenomenon: Chronic. Stable. * Patient on terazosin 2mg PRN but has not needed it recently. She states she only takes when it's cold outside. (10) DVT prophylaxis: Lovenox 30mg SQ daily Subjective Feels very well. Would actually like to go home, but had a fever this morning. She did not realize it. Reports no chest pain, shortness of breath, abdominal pain, nausea, or vomiting. Physical Exam Constitutional: WD/WN, vitals as above + diaphoretic Eyes: EOM intact bilaterally; no conjunctival abnormality ENMT: external ear and nose normal, oropharynx normal Neck: trachea midline, no thyromegaly normal visual inspection Respiratory: normal respiratory effort, lungs clear to auscultation no respiratory distress Cardiovascular: RRR, no murmur, no edema Gastrointestinal (Abdomen): Inspection/Auscultation: abdomen normal to inspection; abdomen not distended Musculoskeletal: no cyanosis or clubbing, extremities motor strength 5/5 Skin: no rashes, warm and dry Neurologic: moves all extremities and awake Psychiatric: Orientation: alert, oriented to person and cooperative Results & Data ([facility]) Vital Signs (Past 12 Hours) Vital Signs Temp Pulse Pulse Resp BP BP Pulse Ox 07/15/19 15:50 36.7 C 75 24 126/77 95 07/15/19 15:00 79 07/15/19 11:00 36.6 C 83 16 105/62 95 07/15/19 07:18 79 07/15/19 07:00 38.5 C H 83 16 137/80 97 PG Care Time/CCT Total # of Minutes Spent Total Time Spent with Patient: Total time spent is greater than 50% in coordination of care (as documented) at patient's floor/unit and/or counseling patient: Coding Level of Care Code 68033 Subseq Hosp Care Lvl 2 Diagnoses Pneumonia J18.9 Laterality: unspecified laterality Lung location: unspecified part of lung Pneumonia type: due to unspecified organism LIBRADO (acute kidney injury) N17.9 Hypertension I10 Rheumatoid arthritis M06.9 Anxiety F41.9 Sleep apnea G47.30 Insomnia G47.00 Gastroesophageal reflux disease K21.9 Raynauds phenomenon I73.00 DVT prophylaxis Z29.9 (1) Pneumonia Laterality: unspecified laterality Lung location: unspecified part of lung Pneumonia type: due to unspecified organism Qualified Code(s): J18.9 - Pneumonia, unspecified organism
[2019-07-15] MEDS ORDERED: LOPERAMIDE HCL 2 MG CAP PO ONE (20:05)
[2019-07-15] MEDS: TRAZODONE HCL 50 MG TAB PO SCH (20:10)
[2019-07-16] MEDS: cefTRIAXone SODIUM 2,000 MG in DEXTROSE 5% 50 ML IV SCH (03:07)
[2019-07-16 06:25] LABS: Hematocrit (blood only) 32.2 % (37-47); Hemoglobin 10.9 g/dL (12.0-16.0); Mean Corpuscular Hemoglobin 27.2 pg (25-34); Mean Corpuscular Hgb Conc 33.9 g/dL (32-36); Mean Corpuscular Volume 80.3 fL (80-100); Mean Platelet Volume 10.6 fL (7.4-10.4); Platelet Count 247 K/uL (130-400); RDW Coefficient of Variation 13.6 % (11.5-14.5); RDW Standard Deviation 40.4 fL (36.4-46.3); Red Blood Count 4.01 M/uL (4.2-5.4); White Blood Count 6.97 K/uL (4.8-10.8)
[2019-07-16 06:58] LABS: BUN Creatinine Ratio 10.1 (10-20); Calcium 8.4 mg/dl (8.5-10.1); Creatinine Clr Calc Pharmacy 51.2 ml/min; Est GFR (African American) 60.4; Est GFR (Non-African American) 52.1; Phosphorus 3.2 mg/dl (2.5-4.9); Potassium 3.4 mmol/L (3.5-5.1)
[2019-07-16] MEDS: HYDROXYCHLOROQUINE SULFATE 200 MG TAB PO SCH (08:09)
[2019-07-16] MEDS: AZITHROMYCIN 250 MG TAB PO SCH (08:09)
[2019-07-16] MEDS: LACTOBACILLUS ACIDOPHILUS (FLORANEX) TAB PO SCH ×2 (08:09→13:24)
[2019-07-16] MEDS: ENOXAPARIN INJ 30 MG/0.3 ML SYR SQ SCH (08:10)
[2019-07-16] MEDS: VENLAFAXINE HCL XR 75 MG CAPXR PO SCH (08:10)
[2019-07-16] MEDS: PANTOprazole 40 MG TAB PO SCH (08:10)
[2019-07-16] MEDS ORDERED: POTASSIUM CHLORIDE 20 MEQ TABCR PO ONE (10:00)
--- NOTE | 2019-07-16 14:32 | Discharge Summary ---
Date of Service July 16, 2019 Admission HPI Per Admitting Provider Manju Murphy is a 63 y/o y/o female with past medical hx of RA, Raynaud's, HTN, anxiety, GERD, CARLOS who presents for CC Fever and Shortness of breath. She notes onset of fevers about 3 days ago with Tmax 101 F treated with Ibuprofen which did not relieve fevers. She started to have onset of shortness of breath about 2 days ago at rest and with exertion. She denied any cough. She has had chills, night sweats. No abdominal pain, chest pain, nausea, vomiting, diarrhea, travel out of [facility], long car trips/air travel/travel to [place]. She did not get the influenza vaccine and has not received any Pneumonia vaccinations since turning 63. She has no prior history of Pneumonia. She does wear a CPAP at night but did not bring machine. No lower extremity swelling or calf pain. She notes poor PO intake with poor hydration and decreased appetite. In the ED, she was found to have a mild leukocytosis, hyponatremia 129, hypokalemia 3.0, Possible LIBRADO Creatinine 1.68 with possible baseline 1.30 from review of old records, hypomag of 1.7, INR of 1.2 not on anti-coagluation, negative for influenza. CXR showed right basilar consolidation with clinical correlation consistent with pneumonia. She received Zosyn and 1L of NSS in ED. Principal Diagnosis Community-acquired pneumonia Discharge Exam Constitutional WD/WN, vitals as above + diaphoretic Eyes EOM intact bilaterally; no conjunctival abnormality ENMT external ear and nose normal, oropharynx normal Neck trachea midline, no thyromegaly normal visual inspection Respiratory normal respiratory effort, lungs clear to auscultation no respiratory distress Cardiovascular RRR, no murmur, no edema Gastrointestinal (Abdomen) Inspection/Auscultation: abdomen normal to inspection; abdomen not distended Musculoskeletal no cyanosis or clubbing, extremities motor strength 5/5 Skin no rashes, warm and dry Neurologic moves all extremities and awake Psychiatric Orientation: alert, oriented to person and cooperative Discharge Data Allergies Allergy/AdvReac Type Severity Reaction Status Date / Time Sulfa (Sulfonamide Allergy Severe RASH Verified 07/13/19 21:48 Antibiotics) sulfamethoxazole Allergy Unknown Anaphylaxis Verified 07/13/19 21:48 [From Bactrim] tramadol Allergy Unknown Hypotension Verified 07/13/19 21:48 trimethoprim [From Bactrim] Allergy Unknown Anaphylaxis Verified 07/13/19 21:48 Consultations 07/13/19 21:36 ED Decision to Admit Stat 07/14/19 11:54 Consult Thoracic Surgery Routine Ordered Studies 07/14/19 02:28 CT chest wo con Routine Hospital Course (1) Pneumonia: CT with evidence of RLL pneumonia with small parapneumonic effusion. follow up imaging recommended. Of note, also with several scattered pulmonary nodules (low suspicion) --> 5mm left lower lobe pulmonary nodule seen on image #125. At least 4 RML nodules measuring up to 3 mm. As a low risk patient, Fleischner criteria recommendations are no follow up; however, given her immune suppression, may warrant another CT in 6 months to 1 year. * Consulted Dr. Little -- no need for thoracentesis * Continued to have fevers while hospitalized. Last one was 38.1 on 07/15 at 11:30pm. The patient very much wanted to go home. I would have preferred she stay another day, but she felt she would recover more effectively at home, and I agreed to discharge her. Due to her immune-suppression, her abx duration will be longer. * Discharged on azithromycin x 2 more days and cefuroxime for 7 more days. She is to contact Dr. Street if she has more fevers and to see him in his office before she finishes antibiotics. * - She will need a repeat CXR in 4-6 weeks to ensure resolution of her effusion. (2) LIRBADO (acute kidney injury): Creatinine 1.68 on admit -- baseline ~1.3 per records. 1L NSS in ED. UA with trace protein, 10-30WBC, >30 epi, 5-10 granular casts. Urine Osm low at 441. Urine random sodium 81. Urine culture pending. * Improvement of Cr to 1.28 * Continue to monitor - Cr is 1.22. Returned to home meds on discharge. (3) Hypertension: Chronic. Stable. Currently 125/75. * Returned to home meds on discharge. (4) Rheumatoid arthritis: Chronic. Stable. * Continue with home Plaquenil 200mg PO BID (5) Anxiety: Chronic. Stable. * Continue with home Effexor XR 75mg daily (6) Sleep apnea: * CPAP ordered, CARLOS, did not bring hers, she is unsure of settings. (7) Insomnia: * Continue with home Trazodone 50mg PO qHS (8) Gastroesophageal reflux disease: * Continue with home PPI -- patient on omeprazole at home -- substituted for protonix 40mg (9) Raynauds phenomenon: Chronic. Stable. * Patient on terazosin 2mg PRN but has not needed it recently. She states she only takes when it's cold outside. (10) DVT prophylaxis: Lovenox 30mg SQ daily Total Time Total Time Spent Total Time Spent (In Minutes): 35 Discharge Plan Discharge Items Patient Disposition: Home - Self-Care Reason For Visit: PNEUMONIA Discharge Diagnosis: Pneumonia Activity: Resume your previous activity Exercise/Sports: Gradually increase as tolerated Non-emergency contact: Primary Care Provider Call non-emergency contact if: your symptoms worsen and your temperature is above 101 Follow-up/Referrals: Aman Street MD [Primary Care Provider] - Diet: Regular Addtl Attending Provider Instructions: Ms. Murphy, Jean were admitted to the hospital with a significant right-sided pneumonia. This caused a very small amount of fluid to accumulate around the right lung called a pleural effusion. You were seen by the thoracic surgeon, Dr. Little who didn't feel you needed any drainage of the fluid (a thoracentesis) because it is so small. We will give you a longer course of antibiotics because of your immune- suppression from your rheumatoid arthritis medications. We would like you to get a repeat chest x-ray in 4-6 weeks to be sure the fluid has gone away. Dr. Street can order this for you. You also started to have diarrhea before you were discharged. We have the testing for C. diff pending, but it is not back yet. For your blood pressure, we held your blood pressure medication as the combo pill you're on can upset your kidneys. Your kidney function is back to its baseline, so I restarted it, but be sure to stay hydrated at home. If you feel you are getting dehydrated, please call Dr. Street to discuss whether to continue it. Please take the azithromycin tomorrow morning and morning. This will finish the course for this antibiotic. Hopefully this will allow the diarrhea to ease up. The cefuroxime will be a longer course. Please take this for 7 more days. It is a two time a day medication. You will take the next dose tomorrow morning (Monday) and then two times a day until it is gone. If you have further fevers at home, please call Dr. Street's office. I would like you to see him in the clinic before you finish your antibiotic (or within a day of finishing it), so it would be early next week. Pending Studies at Discharge: No Stand-Alone Forms: My [facility], Smoking Cessation Medications and DC Order Prescriptions: New azithromycin [Zithromax] 250 mg Tablet 250 mg PO DAILY Qty: 2 RF: 0 Lactobacillus acidoph-L.bulgar [Floranex] 1 million cell Tablet 2 tab PO BID Qty: 30 RF: 0 cefuroxime axetil 500 mg tablet 500 mg PO BID 7 Days Qty: 14 RF: 0 Continued terazosin 2 mg capsule 2 mg PO DAILY Qty: 30 RF: 2 omeprazole 40 mg capsule,delayed release(DR/EC) 40 mg PO DAILY Qty: 30 RF: 2 spironolacton-hydrochlorothiaz 25-25 mg tablet 1 tab PO BID Qty: 30 RF: 2 venlafaxine [Effexor XR] 75 mg capsule,extended release 24hr 75 mg PO DAILY RF: 0 trazodone 50 mg tablet 50 mg PO HS RF: 0 hydroxychloroquine [Plaquenil] 200 mg tablet 200 mg PO BID RF: 0 Discontinued ibuprofen [Advil] 200 mg Tablet 400 mg PO Q6H PRN (Reason: fever/pain) RF: 0 Discharge Orders: Discharge Order (Routine); Ordered 07/16/19 Ordered By: Prince Moreno Admission Data Admit Date/Time: 07/13/19 23:36 Attending Provider: Prince Moreno Admit Provider: Steven Gray Primary Care Provider: Aman Street Other Providers: Jono Little ; Prince Moreno Other Interventions: Discharge Summary Assessment (RN) Last Done: 07/16/19 14:24 Coding Level of Care Code D/C Day Management >30 mins Diagnoses Pneumonia J18.9 Laterality: unspecified laterality Lung location: unspecified part of lung Pneumonia type: due to unspecified organism LIBRADO (acute kidney injury) N17.9 Hypertension I10 Rheumatoid arthritis M06.9 Anxiety F41.9 Sleep apnea G47.30 Insomnia G47.00 Gastroesophageal reflux disease K21.9 Raynauds phenomenon I73.00 DVT prophylaxis Z29.9
== END 2019-07-16 15:02 | disposition home or self-care (01) | DRG 194 ==
LOC: ED 19:57 → 2W 23:36 → SUATTDRO 23:36 → 2W 07-14 00:45

== ENCOUNTER 2024-04-26 08:26 | Observation (INO) ==
--- NOTE | 2024-04-01 16:18 | PAT Medication Instructions ---
Medication Instructions Date of Service April 01, 2024 Home Medications Medication Instructions Recorded trazodone 50 mg tablet 50 mg .Route HS #90 tabs 01/05/21 hydroxychloroquine 200 mg tablet 200 mg PO BID #180 tabs 08/24/21 (Plaquenil) trazodone 50 mg tablet 50 mg .Route HS hydroxychloroquine 200 mg tablet (Plaquenil) 200 mg PO BID aspirin 81 mg capsule 81 mg PO DAILY omeprazole 40 mg capsule,delayed release 40 mg PO QAM rosuvastatin 20 mg tablet 20 mg PO QAM spironolactone 25 mg-hydrochlorothiazide 25 mg tablet 1 tab PO BID venlafaxine 75 mg capsule,extended release 24 hr (Effexor XR) 75 mg PO QAM ASK your prescriber and surgeon hydroxychloroquine 200 mg tablet (Plaquenil) 200 mg PO BID aspirin 81 mg capsule 81 mg PO DAILY DO NOT take the morning of surgery spironolactone 25 mg-hydrochlorothiazide 25 mg tablet 1 tab PO BID Take morning of surgery With a small sip of water, OTHERWISE NOTHING TO EAT OR DRINK AFTER MIDNIGHT: omeprazole 40 mg capsule,delayed release 40 mg PO QAM rosuvastatin 20 mg tablet 20 mg PO QAM venlafaxine 75 mg capsule,extended release 24 hr (Effexor XR) 75 mg PO QAM Take evening before surgery trazodone 50 mg tablet 50 mg .Route HS spironolactone 25 mg-hydrochlorothiazide 25 mg tablet 1 tab PO BID Other Notes If you have any questions please call us at [phone] or [phone] or [phone] or [phone]
--- NOTE | 2024-04-08 10:28 | Anesthesiology Consultation ---
Date of Service April 08, 2024 Assessment & Plan (1) Encounter for pre-operative examination: - patient mentioned at PAT visit that she believed there was also consideration that a pain medication. I reviewed ER note from 2008 which indicates that patient presented with rash and shortness of breath without mucosal membrane involvement felt by provider to be due to Bactrim but patient was advised to stop both Bactrim and Augmentin which she was taking prior to presentation. Patient denies formal allergy testing or additional doses with Augmentin, amoxicillin. 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 Case discussed in detail with Dr. Jacobson who advised nothing additional is needed and patient can proceed with surgery. Surgeon's office made aware. - Outpatient joint assessment: Patient is currently scheduled for inpatient path way. If re-evaluated and patient/surgeon requests outpatient pathway, patient is not advised candidate for outpatient joint program from anesthesia standpoint. Chart Review Chart Review: Acceptable Risk for Surgery and Patient seen in Pre Admission Testing Teaching & Discussion Pre-Anesthesia Teaching/Discussion Notes: Instructed NPO after midnight before surgery, except medications with 15 cc of water. Medication instructions provided according to the [facility] guidelines. History Surgery Operation Date: 04/26/24 07:00 Proposed Procedures p Left Total Knee Arthroplasty - Taurus Lamb MD Height/Weight Height: 5 ft Weight: 102.7 kg Allergies Allergy/AdvReac Type Severity Reaction Status Date / Time amoxicillin [From Augmentin] Allergy Unknown see Verified 04/08/24 14:11 notation clavulanic acid Allergy Unknown see Verified 04/08/24 14:11 [From Augmentin] notation sulfamethoxazole AdvReac Severe Anaphylaxis Verified 04/01/24 13:43 [From Bactrim] trimethoprim [From Bactrim] AdvReac Severe Anaphylaxis Verified 04/01/24 13:43 Sulfa (Sulfonamide AdvReac Intermediate Rash Verified 04/01/24 13:43 Antibiotics) tramadol AdvReac Intermediate Hypotension Verified 04/01/24 13:43 Medications Home Medications Medication Instructions Recorded Confirmed Last Taken trazodone 50 mg tablet 50 mg .Route HS #90 tabs 01/05/21 04/01/24 Unknown hydroxychloroquine 200 mg tablet 200 mg PO BID #180 tabs 08/24/21 04/01/24 Unknown (Plaquenil) aspirin 81 mg capsule 81 mg PO DAILY 04/01/24 04/01/24 Unknown omeprazole 40 mg capsule,delayed 40 mg PO QAM 04/01/24 04/01/24 Unknown release rosuvastatin 20 mg tablet 20 mg PO QAM 04/01/24 04/01/24 Unknown spironolactone 25 1 tab PO BID 04/01/24 04/01/24 Unknown mg-hydrochlorothiazide 25 mg tablet venlafaxine 75 mg capsule,extended 75 mg PO QAM 04/01/24 04/01/24 Unknown release 24 hr (Effexor XR) Past Medical History Medical History (Updated 04/08/24 @ 10:45 by Viridiana Hand PA-C) [place]'s esophagus Chronic kidney disease (CKD) Dr Frey Degenerative arthritis Hiatal hernia History of pneumonia (~2019) Hx of migraines Hypertension controlled, stable per pt PONV (postoperative nausea and vomiting) denies needing scop patch Raynauds phenomenon Rheumatoid arthritis Schatzki's ring Sciatica hx Sleep apnea CPAP-compliant Russell-Jose Roberto syndrome (~2013) patient states was due to Bactrim and a pain medication Patient denies h/o stroke, seizures, heart attack, heart failure, DM, blood clots/DVTs or blood transfusions. Exercise / Class Metabolic Activity II 4-5 Yardwork/Stairs/Walk up hill (shortness of breath with one flight of stairs ongoing x 3 years since knee dysfunction, denies change or worsening; denies chest discomfort) Past Family History Family History Father Myocardial infarction Prostate cancer Grandmother (Maternal) Ovarian cancer Denies family history of Colon cancer Breast cancer Past Surgical History Surgical History (Updated 04/08/24 @ 10:46 by Viridiana Hand PA-C) History of repair of rectocele Hx of colonoscopy Hx of esophagogastroduodenoscopy S/P hernia repair S/P hysterectomy S/P left knee arthroscopy "foregn body behind patella" S/P tubal ligation Past Anesthesia History No Hx of Anesthesia Complications and No Family Hx of Anesthesia Complications History of PONV No Hx of Motion Sickness and History of PONV (denies needing scop patch) Social History Smoking Status: Never smoker Do You Dip or Chew Tobacco: No Hx Alcohol Use: Yes Alcohol type: wine alcohol intake frequency: holidays/special occasions only Hx Substance Use: Yes substance use type: marijuana Substance Use Type Other:: "to help sleep" Last Used Substance: Unknown Last Used Substance Other:: advised Review of Systems Patient denies chest pain, fever, chills, cough, wheezing, or palpitations. Physical Exam Vital Signs Vitals BP 136/85 P 75 TEMP 98.3 SP02 97% on RA RESP 18 Physical Patient resting comfortably in chair in no acute distress, alert and oriented, responding appropriately throughout visit Full cervical extension range of motion without pain TMD < 3 finger breadths Mallampati Score 3 Dentition: intact, denies chipped or loose teeth, caps/crowns, implants or bridges Lungs: normal respiratory effort. Good air movement, clear throughout to auscultation, no adventitious breath sounds Cardiac: regular rate and rhythm, no murmurs noted Carotid arteries: negative bruit bilat Lab Results Anesthesia Preop Results Results Anesthesia Widget: PT 11.0 Seconds (9.0-12.0) 04/08/24 PTT 26 Seconds (21-31) 04/08/24 INR 1.0 (0.9-1.1) 04/08/24 Blood Type A Positive 04/08/24 Antibody Screen NEGATIVE 04/08/24 Testing Laboratory Results 03/29/24 WBC: 3.5 H/H: 13/39 PLATELETS: 244,000 SODIUM: 139 POTASSIUM: 3.2 CHLORIDE: 103 CO2: 27 BUN: 14 CREATININE: 1.2 GLUCOSE: 91 Alk phos: 73 AST: 25 ALT: 17 Electrocardiogram Date: 05/29/23 NSR, rate 76 bpm Minimal voltage criteria for LVH, may be normal variant Inferior infarct, age undetermined-no significant change per provider notation Chest X-Ray Date: 04/08/24 No acute cardiopulmonary findings. Cervical Spine Date: 04/08/24 Demineralized appearance of the bones. Normal C1-C2 interval. Multilevel degenerative changes with moderate to severe disc space narrowing at C6-C7. [id number] multilevel spondylotic spurring with moderate facet arthrosis. No acute fracture or subluxation. Prevertebral tissues are unremarkable. Lung apices are clear. IMPRESSION: 1. No acute fracture or subluxation. 2. Degenerative changes as above.
--- NOTE | 2024-04-21 08:30 | History & Physical Report ---
Date of Service April 21, 2024 Assessment & Plan (1) Degenerative arthritis of knee, bilateral: 68-year-old female with history of left knee arthroscopy in the past with multiple medical comorbidities and severe bilateral knee arthritis. She has failed conservative treatment. She would like to proceed with surgical treatment. Plan: We are going to take her to the operating do a left total knee replacement. The risks Mente this procedure explained in depth and patient understands. Informed consent was obtained. She does have impaired renal function so we will but have to be careful using any NSAIDs. She is planned to be discharged to home using [facility] and believe her fri ends can assist in her care. We use aspirin for DVT prophylaxis. (2) Family history of coronary artery disease: (3) Dyslipidemia: (4) Gastroesophageal reflux disease: (5) Hypertension: (6) Overweight: (7) Chronic renal insufficiency: History of Present Illness Chief Complaint: . Bilateral knee pain discomfort left side greater than the right. Primary Care Provider: Dina Stephen . The patient is a 68-year-old female who presents for treatment of her knees. She got a long history of bilateral knee pain discomfort that is gradually gotten worse over time. She does have a history of a left knee arthroscopy done by Dr. Lira about 10 years ago. Since then she has had extensive treatment to her knees including steroid shots and viscosupplementation which have become less successful over time. Pain is mostly medial. The left knee bothers her more than the right. He is actually resorted to using a cane to get around. She is looking performed definitive treatment at this time. Allergies Allergy/AdvReac Type Severity Reaction Status Date / Time amoxicillin [From Augmentin] Allergy Unknown see Verified 04/08/24 14:11 notation clavulanic acid Allergy Unknown see Verified 04/08/24 14:11 [From Augmentin] notation sulfamethoxazole AdvReac Severe Anaphylaxis Verified 04/01/24 13:43 [From Bactrim] trimethoprim [From Bactrim] AdvReac Severe Anaphylaxis Verified 04/01/24 13:43 Sulfa (Sulfonamide AdvReac Intermediate Rash Verified 04/01/24 13:43 Antibiotics) tramadol AdvReac Intermediate Hypotension Verified 04/01/24 13:43 Home Medications Medication Instructions Recorded Confirmed Type trazodone 50 mg tablet 50 mg .Route HS #90 tabs 01/05/21 04/01/24 Rx hydroxychloroquine 200 mg tablet 200 mg PO BID #180 tabs 08/24/21 04/01/24 Rx (Plaquenil) aspirin 81 mg capsule 81 mg PO DAILY 04/01/24 04/01/24 History omeprazole 40 mg capsule,delayed 40 mg PO QAM 04/01/24 04/01/24 History release rosuvastatin 20 mg tablet 20 mg PO QAM 04/01/24 04/01/24 History spironolactone 25 1 tab PO BID 04/01/24 04/01/24 History mg-hydrochlorothiazide 25 mg tablet venlafaxine 75 mg capsule,extended 75 mg PO QAM 04/01/24 04/01/24 History release 24 hr (Effexor XR) Past Med/Surg History Problem List Encounter for pre-operative examination Degenerative arthritis of knee, bilateral Osteoarthritis of toe joint History of rheumatoid arthritis Osteoarthritis Abnormal electrocardiogram 07/09/23 Family history of coronary artery disease Dyslipidemia Chronic kidney disease, stage 3a Pain of right great toe Hyperglycemia 07/09/20 Anxiety Anemia (Chronic) Gastroesophageal reflux disease (Chronic) Hypertension (Chronic) Insomnia (Chronic) Mammogram abnormal (Chronic) Overweight (Chronic) Raynauds phenomenon (Chronic) Chronic renal insufficiency (Chronic) Rheumatoid arthritis (Chronic) Sleep apnea (Chronic) Medical History History of pneumonia (~2019) PONV (postoperative nausea and vomiting) denies needing scop patch Hx of migraines Sleep apnea CPAP-compliant Raynauds phenomenon Hypertension controlled, stable per pt Rheumatoid arthritis Guadarrama's esophagus Degenerative arthritis Chronic kidney disease (CKD) Dr Shante Pro's ring Hiatal hernia 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 due to Bactrim and a pain medication Surgical History History of repair of rectocele Hx of colonoscopy Hx of esophagogastroduodenoscopy S/P tubal ligation S/P hysterectomy S/P hernia repair S/P left knee arthroscopy "foregn body behind patella" Family History Father Myocardial infarction Prostate cancer Grandmother (Maternal) Ovarian cancer Denies family history of Colon cancer Breast cancer Social History Smoking Status: Never smoker Second Hand Exposure: No; Do You Dip or Chew Tobacco: No; Hx Alcohol Use: Yes Alcohol type: wine Hx Substance Use: Yes Last Used Substance: Unknown Last Used Substance Other:: advised Substance Use Type Other:: "to help sleep" Preferred Language: Faroese Communication Ability: Effective Visual Impairment: No Limitations Hearing Ability: Normal Human Resources Manager Required: No Beliefs That Will Affect Care: None marital status: Single Current Living Situation: Alone current occupational status: employed 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 Physical Exam . Physical examination reveals a pleasant mildly obese middle-age female. Examination of both knees reveals a patient ambulates with use of a cane. She got varus alignment to both knees. Examination left knee reveals tenderness over the medial joint line. She got varus alignment. Range of motion is about 10 degrees short of full extension to 115 degrees of flexion. There is no instability. No particular pain with hip motion. Examination of the right knee reveals a similar varus deformity. Mild tenderness medially. Small knee effusion. Range of motion 5-1 25. No i nstability. Constitutional WD/WN, vitals as above Respiratory normal respiratory effort, lungs clear to auscultation Cardiovascular RRR, no murmur, no edema Gastrointestinal (Abdomen) normal bowel sounds, soft, nontender, no hepatosplenomegaly Results & Data Results & Data Laboratory Results . Laboratory values reveal elevated creatinine at 1.37 which is chronic. Potassium just slightly low at 3.4. Electrolytes otherwise are normal. Diagnostic Findings . X-rays of left knee were reviewed. She has advanced bilateral knee arthritis. She got complete loss of medial joint space in both knees. She got [id number] disease. Osteophytes primarily medially. PG Care Time/CCT Total # of Minutes Spent Total Time Spent with Patient: Total time spent is greater than 50% in coordination of care (as documented) at patient's floor/unit and/or counseling patient: Coding Level of Care Code None Diagnoses Degenerative arthritis of knee, bilateral M17.0 Family history of coronary artery disease Z82.49 Dyslipidemia E78.5 Gastroesophageal reflux disease K21.9 Hypertension I10 Overweight E66.3 Chronic renal insufficiency N18.9
[~2024-04-26 08:26] MED LIST changes: +BUPIVACAINE 0.5 % 5 MG/1 ML PF 10ML VIAL ONE; -EFFSR75 PO; -HYDR200T5 PO; -HYT/2 PO; -IBUP-1050 PO; -IBUP1CAP30 PO; -OMEP40CA41 PO; +ROPIVACAINE 0.5% 5 MG/ML 30 ML VIAL ONE; -SPIR1TAB72 PO; -TRAZ50TA35 PO
--- NOTE | 2024-04-26 08:33 | History & Physical Bridge Note ---
Date of Service April 26, 2024 History & Physical Bridge Note I have examined the patient, reviewed the History & Physical and in the interval since the performance of the History & Physical I have noted the following changes of clinical significance: no changes noted
[2024-04-26] MEDS ORDERED: MIDAZOLAM HCL 1 MG/ML 2ML VIAL ONE (09:14)
[2024-04-26] MEDS: ACETAMINOPHEN 500 MG TAB PO SCH ×2 (09:34→20:14)
[2024-04-26] MEDS: dexAMETHasone**PF** 10 MG/ML VIAL IV SCH (09:34)
[2024-04-26] MEDS: LR 60ML/HR IV SCH (09:35)
[2024-04-26] MEDS: CeleBREX 200 MG CAP PO SCH (09:35)
[2024-04-26] MEDS: FAMOTIDINE 20 MG TAB PO SCH (09:35)
[2024-04-26] MEDS: Scopolamine 1 MG TDSY TD SCH (09:35)
[2024-04-26] MEDS: LR 500ML BOLUS, THEN 15ML/HR IV SCH (09:41)
[2024-04-26] MEDS ORDERED: HYDROmorphone INJ 1 MG/ML SYRINGE IV PRN (09:43)
[2024-04-26] MEDS ORDERED: ePHEDrine sulfate 50 MG/ML AMP IV PRN (09:43)
[2024-04-26] MEDS ORDERED: ONDANSETRON INJ 2 MG/ML 2 ML VIAL IV PRN ×2 (09:43→17:16)
[2024-04-26] MEDS ORDERED: fentaNYL citrate PF 100 MCG/2 ML VIAL IV PRN (09:43)
[2024-04-26] MEDS ORDERED: ATROPINE SULFATE 0.1 MG/ML 10ML SYR IV PRN (09:43)
[2024-04-26] MEDS ORDERED: PROMETHAZINE HCL 6.25 MG in SODIUM CHLORIDE 0.9% 50 ML IV PRN (09:43)
[2024-04-26] MEDS ORDERED: LIDOCAINE 2% 2 ML VIAL/AMP(20MG/ML) INFIL ONE (09:55)
[2024-04-26] MEDS ORDERED: PROPOFOL IV EMULSION 10 MG/ML 20 ML VIAL IV ONE (09:55)
[2024-04-26] MEDS: TRANEXAMIC ACID 1,000 MG **IV Intra-op IV SCH (10:37)
[2024-04-26] MEDS: ceFAZolin 2000MG 2,000 MG/15 ML SYR IV SCH ×2 (10:37→18:40)
[2024-04-26] MEDS: ROPIV 0.5% 246mg, Ketorolac 30mg, EPINEPHrine 0.5mg in NSS INFIL SCH (11:13)
[2024-04-26] MEDS: ORTHO JOINT ANESTHETIC ONE (11:14)
[2024-04-26] MEDS ORDERED: PHENYLEPHRINE 100MCG/ML 5ML SYR ONE (11:26)
--- NOTE | 2024-04-26 12:32 | Operative Report ---
PG Post Operative Report Pre & Post Diagnosis Operation Date: 04/26/24 10:40 Pre-Op Diagnosis: Left Knee Degenerative Joint Disease Post-Op Diagnosis: Left Knee Degenerative Joint Disease I identified the patient and participated in the time-out.: Yes Procedure Operation Date: 04/26/24 10:40 Actual Procedures p Left Total Knee Arthroplasty(Left) - Taurus Lamb MD Surgeon Taurus Lamb MD [employer] Operator Zen Elena PA-C Estimated Blood Loss 50 Findings Consistent with Post-Op Diagnosis Operative findings revealed advance left knee tricompartment disease with grade 4 [id number] disease in all 3 compartments. She had osteophytes in all 3 compartments. Moderate-sized joint effusion. Large soft tissue envelope. Specimens Left knee sent for pathology. Anesthesia Type Spinal MAC Complications none Disposition Accompanied Patient To Recovery: No Indications The patient is a 5-year-old female has had a long history of left knee pain discomfort described to gotten worse over time. Pain became more debilitating and unresponsive conservative treatment. She was actually using a cane to get around due to her pain. She elected proceed with surgical treatment. Description of Procedure Operative implants consist of: 1. Biomet Vanguard size 65 left posterior stabilized femoral component. 2. Biomet size 67 tibial tray. 3. 12 mm posterior stabilized polyethylene insert. 4. 28 x 8 all poly patella. The patient was taken the op room, identified, placed on the operating table in the supine position. All contact areas were appropriately padded. IV antibiotics fibra anesthesia team. A spinal anesthetic and adductor canal block had been Weida in the holding area. Cobos catheter was placed in a sterile fashion. A left thigh turn was then placed. Left lower extremity was then prepped and draped in usual sterile fashion. The left leg was elevated and exsanguinated with use of an Esmarch and a turn was placed at 300 mmHg. An anterior approach left knee was then performed through a longitudinal incision centered over the patella. Sharp dissection was got through subcutaneous tissue down the extensor mechanism. Medial parapatellar arthrotomy incision was made. Some subperiosteal dissection was carried out medially. The fat pad was resected from Neath patella tendon. The lateral patellofemoral ligament was released. Patella subluxated laterally and the knee was flexed. The osteophytes taken off distal femur. The ACL PCL were then released from distal femur the tibia subluxated anteriorly. The external tibial alignment jig was then placed on the anterior face of the tibia and adjusted 14 mm medially. Proximal tibial cut was made remove about 2 mm of bone from the medial side. The tibia was then sized to a size 67. Attention drawn the femur. The distal femur was entered with a sharp drill. Intramedullary canal was suction. The left 5 degree valgus cutting guide was placed but the distal femoral cutting block was pinned in place. This femoral cut was made to take an additional 3 mm of bone off distal femur. The femur was then sized to a size 65. The AP cutting block was pinned parallel to the epicondylar axis which was 4 degrees of external rotation. The anterior cut, anterior chamfer, posterior cut, posterior chamfer cuts were made. The box cutting guide was then placed and adjusted slightly laterally. The box cut was made. The knee was flexed. The remnants of the medial and lateral menisci were excised. The osteophytes taken off the posterior aspect the femur. A trial femoral component was placed. The tibial tray was pinned Lima external rotation and the drill and stem punch used to create defect in proximal tibia for the tibial tray. The knee was then trialed and the 12 mm insert fit most appropriately. Attention drawn the patella. The patella was cleaned of all soft tissues. Patella thickness measured 20 mm in thickness was cut down to 12. Was sized to a size 28 patella. The lug holes were drilled from the 28 patella. The lateral osteophytes removed. Patella button was placed. The knee was taken through range of motion and the patella tracked nicely with no thumbs test. Attention drawn to place the permanent components. All trial components were removed. Bone plug was placed in the distal femur limit blood loss. A double batch of Palacos G cement was mixed. A Biomet Vanguard size 65 left posterior stabilized femoral component, a size 67 tibial tray, a 12 mm posterior stabilized polyethylene insert, and a 28 x 8 all poly patella then cemented in place. The knee was brought out into full extension till cement hardened. Final cement check was then performed. The pericapsular tissues were injected with a total of 100 cc of Ortho mix. The patient did receive 1 g tranexamic acid. The tourniquet was then let down for final tourniquet time of 54 minutes. Hemostasis reduce electrocautery. Extensor Metros then closed with combination 1 PDS suture #1 Vicryl suture in a [id number] fashion. Extensor Meclomen checked found to be intact with subcutaneous tissues then closed with 2 Dexon suture in a buried interrupted fashion skin was closed skin nathaly. Leg was then cleaned and dried and sterile dressing with Xeroform, 4 fours, sterile cast padding, Walter bandage were applied. The patient was then transferred to the recovery room in stable condition. The patient tolerated the procedure well and there were no complications. Zen Elena, my physician vet assistant, was present for the entire procedure. His assistance was essential and required for appropriate patient positioning, prepping and draping, surgical exposure, performing the technical details of the operation, placement the implants, closure of the wound, and placement of the sterile bandage. I attest to the content of the Intraoperative Record and any orders documented therein. Any exceptions are noted below.
--- NOTE | 2024-04-26 13:16 | XRay Report ---
XR knee LT 1 or 2V routine CLINICAL HISTORY: Postoperative evaluation. COMPARISON: Left knee radiographs October 24, 2023. FINDINGS: Alignment of the total left knee arthroplasty is anatomic. There is no periprosthetic frac ture or unexpected radiopaque foreign body. There are skin nathaly. IMPRESSION: Expected findings following total left knee arthroplasty. ACT 112: Negative or not required by law. Electronically signed by: Douglas Guaman M.D. 04/26/2024 1:15 PM
--- NOTE | 2024-04-26 14:00 | Anesthesiology Progress Note ---
Date of Service April 26, 2024 Anesthesia Post Procedure Vital Signs Vital Signs: Temp Pulse Pulse Resp BP Pulse Ox O2 Del Method 04/26/24 13:30 85 23 141/70 H 100 Room Air 04/26/24 13:20 88 24 123/69 99 Room Air 04/26/24 13:10 36.5 C 82 21 131/67 99 Room Air 04/26/24 13:00 84 18 126/65 100 Room Air 04/26/24 12:50 84 16 121/64 94 Room Air 04/26/24 12:40 85 14 104/67 94 Room Air 04/26/24 12:30 86 18 114/55 L 99 Room Air 04/26/24 12:24 36.1 C L 90 26 H 117/51 L 99 Oxymask 04/26/24 09:10 37.1 C 82 20 129/74 97 Room Air O2 Flow Rate 04/26/24 13:30 04/26/24 13:20 04/26/24 13:10 04/26/24 13:00 04/26/24 12:50 04/26/24 12:40 04/26/24 12:30 04/26/24 12:24 9 04/26/24 09:10 Transfer of Care Handoff Completed per policy Notes Mental Status: alert / awake / arousable and participated in evaluation Nausea / Vomiting: adequately controlled Pain: adequately controlled Airway Patency, RR, SpO2: stable & adequate BP & HR: stable & adequate Hydration State: stable & adequate Neuraxial Anesthesia: was administered Anesthetic Complications: no major complications apparent and Pt Satisfied with anesthetic care
[2024-04-26] MEDS ORDERED: NALOXONE HCL 0.4 MG/1 ML VIAL/CARP IV PRN (17:16)
[2024-04-26] MEDS ORDERED: bisacodyL 10 MG SUPP PR PRN (17:16)
[2024-04-26] MEDS ORDERED: METOCLOPRAMIDE HCL INJ 5 MG/ML 2 ML VIAL IV PRN (17:16)
[2024-04-26] MEDS ORDERED: MAGNESIUM HYDROXIDE SUSP 30 ML UDC PO PRN (17:16)
[2024-04-26] MEDS ORDERED: NO NSAIDS SCH (17:16)
[2024-04-26] MEDS ORDERED: HYDROmorphone INJ 0.5 MG/0.5 ML SYR IV PRN (17:16)
[2024-04-26] MEDS: Scopolamine CHECK PATCH PLACEMENT SCH (17:26)
[2024-04-26] MEDS: TRANEXAMIC ACID / 0.7% NACL 1,000 MG/100 ML BAG IV SCH (18:28)
[2024-04-26] MEDS: SPIRONOLACTONE 25 MG TAB PO SCH (20:13)
[2024-04-26] MEDS: HYDROXYCHLOROQUINE SULFATE 200 MG TAB PO SCH (20:13)
[2024-04-26] MEDS: ASPIRIN 81 MG ECTAB PO SCH (20:13)
[2024-04-26] MEDS: hydroCHLOROthiazide 25 MG TAB PO SCH (20:13)
[2024-04-26] MEDS: ASCORBIC ACID 500 MG TAB PO SCH (20:14)
[2024-04-26] MEDS: SENNA 8.6 MG TAB PO SCH (20:14)
[2024-04-26] MEDS: DOCUSATE SODIUM 100 MG CAP PO SCH (20:14)
[2024-04-26] MEDS: traZODone HCL 50 MG TAB PO SCH (20:14)
[2024-04-26] MEDS: ALUMINUM/MAGNESIUM SUSP 30 ML UDC PO PRN (20:21)
[2024-04-26] MEDS ORDERED: SPIRONOLACTONE/HCTZ 25-25 PO SCH (21:00)
[2024-04-26] MEDS ORDERED: SENNA 8.6 MG TAB PO SCH (21:00)
[2024-04-26 23:38] VITALS: RESP 16
[2024-04-27] MEDS: oxyCODONE HCL IR 5 MG TAB (IMMEDIATE RELEASE) PO PRN (06:08)
[2024-04-27 06:15] LABS: Hematocrit (blood only) 31.7 % (37.0-47.0); Hemoglobin 10.9 g/dl (12.0-16.0); Mean Corpuscular Hemoglobin 28.7 pg (25.0-34.0); Mean Corpuscular Hgb Conc 34.4 g/dL (32.0-36.0); Mean Corpuscular Volume 83.4 fL (80.0-100.0); Mean Platelet Volume 11.1 fL (9.4-12.4); Platelet Count 188 K/uL (130-400); RDW Coefficient of Variation 13.7 % (11.5-14.5); RDW Standard Deviation 41.7 fL (36.4-46.3); White Blood Count 11.48 K/ul (4.8-10.8)
[2024-04-27 06:33] LABS: BUN Creatinine Ratio 13.1 (10-20); Calcium 8.4 mg/dl (8.6-10.3); Creatinine Clr Calc Pharmacy 40.9 ml/min; Potassium 3.5 mmol/L (3.5-5.1)
[2024-04-27 07:06] VITALS: PULSE 74; TEMP 98.1; O2SAT 94
--- NOTE | 2024-04-27 07:40 | Orthopedic Progress Note ---
Date of Service April 27, 2024 Assessment & Plan (1) Status post left knee replacement: Plan: 68-year-old female postop day 1 from left knee replacement doing reasonably well. Some pain but nothing out of the ordinary. She is neurologically intact. Plan: 1. DVT prophylaxis including Thiede teds, SCDs, aspirin twice a day. 2. PT/OT. Weight-bear as tolerated. Left total knee protocol. 3. Pain control. Doing okay with current pain regimen. 4. Disposition. Plan is to discharge to home with some home health if she does okay in therapy today. Admission and Anticipated Discharge Date Admission Date: April 26, 2024 Subjective 68-year-old female postop day 1 from a left knee replacement. She is doing okay. Having a moderate amount of pain. No chest pain or shortness of breath. Not feeling dizzy or lightheaded. Hoping to go home today. Physical Exam Physical Exam: Physical nation is a pleasant middle-aged female. Lying bed looks pretty comfortable. Examination left leg reveals the leg to be well aligned. Pee ssings clean dry and intact. She can dorsiflex and plantarflex her foot appropriately. She is neurologically intact. Respiratory: normal respiratory effort, lungs clear to auscultation Cardiovascular: RRR, no murmur, no edema Gastrointestinal (Abdomen): normal bowel sounds, soft, nontender, no hepatosplenomegaly Results & Data Vital Signs (Past 12 Hours) Vital Signs Temp Pulse Resp BP Pulse Ox O2 Del Method 04/27/24 07:05 36.7 C 74 16 129/71 94 Room Air 04/27/24 02:32 37.2 C 81 16 126/67 95 Room Air 04/26/24 23:38 36.6 C 87 16 122/67 95 Room Air Laboratory Results Hemoglobin is 10.9. Hematocrit is 31.7. Electrolytes are stable. She is got some chronic renal insufficiency with a creatinine of 1.37 which is stable.
[2024-04-27] MEDS: dexAMETHasone 10 MG in SYRINGE 0 ML IV SCH (07:50)
[2024-04-27] MEDS: PANTOprazole 40 MG TAB PO SCH (07:51)
[2024-04-27] MEDS: VENLAFAXINE HCL XR 75 MG CAPXR PO SCH (07:51)
[2024-04-27] MEDS: ROSUVASTATIN CALCIUM 20 MG TAB PO SCH (07:51)
[2024-04-27] MEDS: MULTIVITAMIN TAB PO SCH (07:51)
[2024-04-27 10:42] VITALS: BP 129/78
--- NOTE | 2024-04-30 14:24 | Discharge Summary ---
Date of Service April 30, 2024 Admission HPI (Per Admitting) . The patient is a 68-year-old female who presents for treatment of her knees. She got a long history of bilateral knee pain discomfort that is gradually gotten worse over time. She does have a history of a left knee arthroscopy done by Dr. Lira about 10 years ago. Since then she has had extensive treatment to her knees including steroid shots and viscosupplementation which have become less successful over time. Pain is mostly medial. The left knee bothers her more than the right. He is actually resorted to using a cane to get around. She is looking performed definitive treatment at this time. Admission Exam (Per Admitting) . Physical examination reveals a pleasant mildly obese middle-age female. Examination of both knees reveals a patient ambulates with use of a cane. She got varus alignment to both knees. Examination left knee reveals tenderness over the medial joint line. She got varus alignment. Range of motion is about 10 degrees short of full extension to 115 degrees of flexion. There is no instability. No particular pain with hip motion. Examination of the right knee reveals a similar varus deformity. Mild tenderness medially. Small knee effusion. Range of motion 5-1 25. No instability. Principal Diagnosis Same as "Discharge Diagnosis" noted below under Discharge Instructions. Discharge Data Procedures Performed Operation Date: 04/26/24 10:40 Actual Procedures p Left Total Knee Arthroplasty(Left) - Taurus Lamb MD Ordered Studies 04/26/24 05:00 US - OR guided needle placemen Routine Hospital Course (1) Status post left knee replacement: This is a 68 year old patient admitted on 04/26/24 and underwent total knee arthroplasty. She tolerated the procedure well and there were no complications. Transferred to the PACU post op and later to the orthopedic floor for further care. She was given ancef for antibiotic prophylaxis. She was also given GENI stockings, SCDs, and aspirin for DVT prophylaxis. Hemoglobin, hematocrit, and vital signs were monitored during her hospital stay and remained stable. Did not require any blood transfusions. There were no complications during her hospital stay. By post op day #1 the patient was tolerating a regular diet, pain was reasonably controlled with oral pain medicine, and she was participating in physical [employer] erapy. On post op day #1 the patient was discharged home and set up with home health care. She was given printed discharge instructions including prescriptions for extra strength tylenol, aspirin, cefadroxil, zofran, oxycodone, and senokot. Continue physical therapy, weight bearing as tolerated. Continue GENI stockings. Follow up approximately 2 weeks post op or sooner if there are problems or concerns. Discharge Plan Discharge Items Patient Disposition: Home - Home Health Services Reason For Visit: Left Knee Degenerative Joint Disease Discharge Diagnosis: Left Knee Replacement Activity: Per Instructions section Weightbearing: Full weightbearing Non-emergency contact: Surgeon Call non-emergency contact if: you have any medication questions Follow-up/Referrals: Dnia Stephen P.A. [Primary Care Provider] - Diet: Regular Addtl Attending Provider Instructions: ACTIVITY RECOMMENDATIONS: Diet: * You may resume previous diet. Physical Therapy: * You will go to physical therapy three times each week for four to six weeks after your surgery in order to regain your knee range of motion and to retrain your knee to work properly. * It is just as important to make sure you are getting your knee perfectly straight as it is to regain your knee bend. * Taking a pain pill an hour before therapy can help you have a more productive and comfortable therapy session. Home Exercise: * You were shown a series of exercises (heel props, heel slides, etc.) in the hospital. Do these exercises three to four times each day including the exercises you were shown in physical therapy. Walking: * Get up and walk several times each day. For the first four weeks, try not to stand or walk for more than one hour at a time. If you do stand or walk for more than one hour, you will not hurt anything, but your knee and leg will likely swell. * As you feel comfortable, you may change from the walker or crutches to a cane and then to independent walking. MEDICATIONS: New Medicine: * You will likely be taking one or more of these medications: 1. Oxycodone - A quick and shorter-acting pain medication. Take one to two tablets every six hours to lessen your pain. 2. Aspirin - Thins your blood to lessen the chance of forming a blood clot. * The most common side effects of pain medicine and iron are nausea and constipation. If nausea or constipation is too much of a problem or if you have any questions about your new medicines or doses, call [facility] at . We will try to help you manage these issues. "VERY IMPORTANT TO READ AND REVIEW" Pain: * The immediate post-operative period after knee replacement surgery is often quite painful. * You are given a prescription for pain medicine. You should take it, as directed, when you need it, especially before physical therapy and before going to bed. Pain that interferes with sleep is very common and can last several months. * You will likely need pain medicine for the first four to six weeks. It will not stop all of the pain. The pain will lessen and as you feel better, you may change to milder pain medicine such as Tylenol. * The most common side effects of pain medicine are nausea and constipation, so don't take more than you need. SPECIAL CARE INSTRUCTIONS: TEDs/Elastic Stockings: * The white elastic stockings help limit swelling and prevent blood clots from forming in your legs. The more you wear them, the more they work. * Wear them for six weeks after knee replacement surgery and four weeks after partial knee replacement. Incision Site Care: * Remove dressing postoperative day 2 and then shower. Keep direct shower pressure off the incision site. * After showering, cover nathaly with dry gauze and change daily or more frequently if the dressing is getting saturated with drainage. * Use the GENI stockings to hold dressing in place. DO NOT apply tape on the skin. * May completely stop using bandage if wound is dry and no drainage * Nathaly are removed between 2 and 3 weeks post-op. If your follow-up appointment is made before 2 weeks, please have your appointment re- scheduled. It is too early to remove the nathaly. Prevention of Infection: * Take antibiotics one hour before any dental cleaning, dental work, urological procedure, gastrointestinal procedure or any invasive surgery in order to prevent your new joint from getting infected. * You may get the antibiotics from the doctor performing the procedure or you may call our office at [phone] before and we will call in a prescription to the pharmacy of your choice. Things to Watch For: * Drainage from the incision site that occurs more than one week after your surgery. * Severely increased knee/leg pain or swelling. * Increased redness at the incision site. * Fever above 102 degrees Fahrenheit. * Unusual chest pain or shortness of breath. * Unusual pain or burning with urination. Call [facility] at [phone] with any of the above problems or if you have any questions about your medicines or recovery. FOLLOW UP VISIT: Make an appointment to see your doctor for approximately two weeks after surgery for a progress check and staple removal by calling the office at [phone]. Pending Studies at Discharge: No Stand-Alone Forms: My [facility], Pain - Opioid Pain Management, Smoking Cessation Medications and DC Order Prescriptions: Continued hydroxychloroquine [Plaquenil] 200 mg tablet 200 mg PO BID Qty: 180 3RF Rx Instructions: NO AUTH NEEDED oxycodone 5 mg tablet 5 - 10 mg PO Q6 PRN (Reason: pain) Qty: 40 0RF Rx Instructions: Take as needed for pain ondansetron 4 mg tablet,disintegrating 4 mg PO Q8 PRN (Reason: nausea) Qty: 20 1RF Rx Instructions: Take as needed for nausea sennosides [Senokot] 8.6 mg tablet 8.6 mg PO BID 14 Days Qty: 28 0RF Rx Instructions: Take two times a day to prevent/treat constipation acetaminophen [Tylenol Extra Strength] 500 mg tablet 1,000 mg PO TID 30 Days Qty: 180 0RF Rx Instructions: Take 3 times per day to lessen pain. aspirin [Dary Low Dose Aspirin] 81 mg tablet,delayed release (DR/EC) 81 mg PO BID 45 Days Qty: 90 0RF Rx Instructions: Take to prevent blood clots. cefadroxil 500 mg capsule 500 mg PO BID 7 Days Qty: 14 0RF Rx Instructions: Take 1 cap twice a day to prevent infection trazodone 50 mg tablet 50 mg .ROUTE HS Qty: 90 3RF Rx Instructions: 50 mg at bedtime; venlafaxine [Effexor XR] 75 mg capsule,extended release 24hr 75 mg PO QAM spironolacton-hydrochlorothiaz 25-25 mg tablet 1 tab PO BID Rx Instructions: TAKE 1 TABLET TWICE A DAY omeprazole 40 mg capsule,delayed release(DR/EC) 40 mg PO QAM rosuvastatin 20 mg tablet 20 mg PO QAM aspirin 81 mg Capsule 81 mg PO DAILY Patient Comments: "Dr Lamb wants me to take it the day before and the day of my surgery." Krames/Other Patient Handouts: Total Knee Replacement Admission Data Admit Date/Time: 04/26/24 12:25 Attending Provider: Taurus Lamb Admit Provider: Taurus Lamb Primary Care Provider: Dina Stephen Other Providers: Replaced By [facility] Other Interventions: Discharge Summary Assessment (RN) Last Done: 04/27/24 10:41
== END 2024-04-27 12:23 | disposition home health service (06) ==
LOC: ASU 08:26 → PACUINP 08:26 → 3E 15:26